=== PATIENT | female | born 1935 | race Caucasian/White ===

== ENCOUNTER 2018-06-04 13:52 | Inpatient (IN) | payer OTHER ==
--- NOTE | 2018-06-04 15:19 | PDOC ---
History of Present Illness - General Chief Complaint: Shortness of Breath Stated Complaint: SHORTNESS OF BREATH/UTI Time Seen by Provider: 06/04/18 13:54 History Source: Family (daughter, grand daughter) Exam Limitations: Dementia - History of Present Illness Initial Comments: 06/04/18 15:14 Pt is an 82yo f with PMH of dementia, htn, hld, afib, hypothyroid, IBS diarrhea type, anxiety BIBA because daughter noticed pt was acting confused and had a fever. Pt resides at [facility] living and per granddaughter, pt's daughter noticed pt seemed more confused, was breathing differently and wet the bed. Pt had a fever of 101.2. Pt says the only thing that is bothering her is her chronic diarrhea. Per grandaughter, pt will not complain of any pain or difficulties. She does not use oxygen at home. PCP: Yazmin PMH: see i Meds: simvastatin 20, ASA 81, amlodipine 5, levothyroxine 100, Remeron 15, Xanax Allergies: nkda Social: quit smoking 6 years ago Past History - Past Medical History Allergies/Adverse Reactions: Allergies Allergy/AdvReac Type Severity Reaction Status Date / Time No Known Allergies Allergy Unverified 04/06/14 15:35 Home Medications: Ambulatory Orders Alprazolam [Xanax] 0.5 mg PO QID 04/06/14 Amlodipine Besylate [Norvasc -] 5 mg PO DAILY 04/06/14 Levothyroxine [Synthroid -] 100 mcg PO DAILY 04/06/14 Simvastatin [Zocor -] 20 mg PO HS 04/06/14 Aspirin [ASA -] 81 mg PO DAILY 09/23/14 Mirtazapine [Remeron -] 15 mg PO DAILY 09/23/14 Cholecalciferol (Vitamin D3) [Vitamin D3] 1,000 unit PO DAILY 06/04/18 Dextrin [Easy Fiber] 2 tsp PO ASDIR PRN 06/04/18 Loperamide HCl [Imodium A-D] 2 mg PO PRN PRN 06/04/18 COPD: No Dementia: Yes HTN: Yes Hypercholesterolemia: Yes Psychiatric Problems: Yes (ANXIETY) Thyroid Disease: Yes - Suicide/Smoking/Psychosocial Hx Smoking History: Former smoker Have you smoked in the past 12 months: No Number of Cigarettes Smoked Daily: 0 If you are a former smoker, when did you quit?: 2014 Information on smoking cessation initiated: No 'Breaking Loose' booklet given: 09/23/14 Hx Alcohol Use: No Drug/Substance Use Hx: No Substance Use Type: None Review of Systems - Review of Systems Able to Perform ROS?: No (Pt doesn't have complaint) Constitutional: Yes: See HPI, Fever HEENTM: Yes: See HPI Respiratory: Yes: Wheezing. No: Cough Cardiac (ROS): Yes: See HPI ABD/GI: Yes: Diarrhea (chronic diarrhea). No: Blood Streaked Bowels, Vomiting : Yes: Incontinence Musculoskeletal: Yes: See HPI Integumentary: Yes: See HPI Neurological: Yes: See HPI Psychiatric: Yes: Anxiety *Physical Exam - Vital Signs Last Vital Signs Temp Pulse Resp BP Pulse Ox 101.3 F H 87 24 127/66 87 L 06/04/18 13:53 06/04/18 13:53 06/04/18 13:53 06/04/18 13:53 06/04/18 13:53 06/04/18 15:43 pulse ox 97 with 4L nc - Physical Exam Comments: 06/04/18 15:43 Pt sitting in bed with nc. General Appearance: Yes: Nourished, Appropriately Dressed. No: Apparent Distress HEENT: positive: EOMI, SOLO, Pharynx Normal, Hearing Grossly Normal. negative: Pale Conjunctivae, Scleral Icterus (R), Scleral Icterus (L), Pharyngeal Erythema , Tonsillar Exudate, Sinus Tenderness Neck: positive: Trachea midline, Supple. negative: Carotid bruit, Lymphadenopathy (R), Lymphadenopathy (L) Respiratory/Chest: positive: Decreased Breath Sounds (In R lung field), Crackles (in L lung base). negative: Respiratory Distress, Accessory Muscle Use Cardiovascular: positive: Regular Rhythm, Regular Rate, S1, S2. negative: Edema , JVD, Murmur Vascular Pulses: Carotid (R): 2+, Carotid (L): 2+, Dorsalis-Pedis (R): 2+, Doralis-Pedis (L): 2+ Gastrointestinal/Abdominal: positive: Normal Bowel Sounds, Soft. negative: Distended, Guarding, Rebound, Tenderness Musculoskeletal: negative: CVA Tenderness Extremity: positive: Normal Capillary Refill Integumentary: positive: Normal Color, Dry, Warm. negative: Erythema, Pale, Cold, Clammy, Diaphoresis, Rash, Swelling Neurologic: positive: grease man II-XII NML intact, Alert, Normal Mood/Affect, Motor Strength 5/5, Responsive. negative: Fully Oriented (oriented to self) Deep Tendon Reflexes: Knee (L): 2+, Knee (R): 2+ ED Treatment Course - LABORATORY CBC & Chemistry Diagram: 06/04/18 14:59 06/04/18 14:24 - ADDITIONAL ORDERS Additional order review: Laboratory Results 06/04/18 14:59 Creatine Kinase Cancelled Troponin I Cancelled - RADIOLOGY Radiology Studies Ordered: Category Date Time Status CHEST X-RAY PORTABLE* [RAD] Stat Radiology 06/04/18 14:24 Completed Medical Decision Making - Medical Decision Making 06/04/18 15:45 Pt is an 82yo f with PMH of dementia, htn, hld, afib, hypothyroid, IBS diarrhea type, anxiety BIBA because daughter noticed pt was acting confused and had a fever. Pt febrile at 101.3, low pulse ox on RA of 87. Normotensive, normocardic -incontinence with foul smelling urine per daughter -low pulse ox. Considering PNA, COPD exacerbation, UTI, Will do sepsis workup
[2018-06-04] MEDS ORDERED: SODIUM CHLORIDE 1,000 ML IV STA (15:33)
[2018-06-04] MEDS ORDERED: ACETAMINOPHEN 1000 MG/100 ML VIAL (NON FORMULARY) IVPB ONE (15:33)
[2018-06-04 15:38] LABS: INR 1.52 (0.82-1.09); PROTHROMBIN TIME (PATIENT) 16.9 SEC (10.2-13.0)
[2018-06-04] MEDS ORDERED: ACETAMINOPHEN INJECTION 100 ML IVPB ONE (15:40)
[2018-06-04 15:45] LABS: ALBUMIN 3.2 g/dl (3.5-5.0); ALK PHOS 96 U/L (32-92); ANION GAP 10 MMOL/L (8-16); BLOOD UREA NITROGEN 19 mg/dl (7-18); CALCIUM 8.5 mg/dl (8.4-10.2); CHLORIDE 100 mmol/L (98-107); CO2 25 mmol/L (22-28); CREATININE 0.8 mg/dl (0.6-1.3); GLUCOSE,RANDOM 122 mg/dl (74-106); MAGNESIUM 1.8 mg/dL (1.8-2.4); POTASSIUM 3.6 mmol/L (3.5-5.1); SGOT/AST 32 U/L (10-42); SGPT/ALT 35 U/L (10-40); SODIUM 135 mmol/L (136-145); TOT PROT 6.9 g/dl (6.4-8.3)
[2018-06-04 15:48] LABS: HEMATOCRIT 36.6 % (32.4-45.2); HEMOGLOBIN 12.2 GM/dl (10.7-15.3); MCH 29.1 pg (25.7-33.7); MCHC 33.3 g/dl (32.0-36.0); MEAN CELL VOLUME 87.3 fl (80-96); MEAN PLT VOLUME 8.2 fl (7.5-11.1); PLATELET COUNT 278 K/MM3 (134-434); RDW 13.8 % (11.6-15.6); WHITE BLOOD COUNT 19.2 K/mm3 (4.0-10.8)
[2018-06-04] MEDS ORDERED: ALBUTEROL SO4 2.5/IPRATROPIUM 0.5 INH SOL 3 ML VIAL.NEB. NEB ONE ×2 (16:13→16:32)
[2018-06-04] MEDS ORDERED: predniSONE 20 MG TABLET (UD) PO ONE (16:13)
--- NOTE | 2018-06-04 16:14 | PDOC ---
Attending Attestation - Resident Resident Name: Florinda Bal - ED Attending Attestation I have performed the following: I have examined & evaluated the patient, The case was reviewed & discussed with the resident, I agree w/resident's findings & plan - HPI HPI: 06/04/18 16:10 82-year-old female with history of dementia presents with fever, increased confusion from baseline, chest congestion and foul-smelling urine. - Physicial Exam PE: 06/04/18 16:10 On examination, the patient is awake, alert, somewhat confused, but following commands consistently. She is noted to have some mild expiratory wheezing, audible without a stethoscope. Chest has expiratory wheezes and rhonchi. Heart is regular rhythm. No murmur. Abdomen is soft and nontender. Extremities without cellulitis or edema. No cords or tenderness. - Medical Decision Making 06/04/18 16:13 Labs and chest x-ray reviewed by me. Although the chest x-ray was read as negative for pneumonia by the radiologist, there is loss of the left heart border with retrocardiac air bronchograms and increased infiltrate in the left lung compared to baseline. I feel there is clinical and radiographic evidence for a left lingular pneumonia. Urinalysis is pending. Patient will be treated with ceftriaxone and azithromycin for pneumonia. She will also be treated with DuoNeb's and prednisone for COPD exacerbation. She has a 50 year history of smoking, quit 3 years ago. Patient will be admitted for further management.
[2018-06-04] MEDS ORDERED: AZITHROMYCIN IVPB 500 MG in DEXTROSE 5%-WATER - 250 ML IVPB ONE (16:15)
[2018-06-04 16:17] LABS: PH,URINE 8.5 (4.5-8); URINE APPEARANCE Slightly; URINE BILIRUBIN 2+ (NEGATIVE); URINE COLOR Yellow; URINE GLUCOSE (UA) Trace (NEGATIVE); URINE KETONE 1+ (NEGATIVE); URINE NITRITE Negative (NEGATIVE); URINE PROTEIN Negative (NEGATIVE); URINE UROBILINOGEN 0.2 (0.2-1.0)
[2018-06-04 16:18] LABS: URINE LEUK ESTERASE 1+ (NEGATIVE)
[2018-06-04 16:30] LABS: VENOUS PC02 50.4 mmHg (38-52); VENOUS PH 7.34 (7.32-7.42); VENOUS PO2 92.1 mmHg (28-48)
[2018-06-04] MEDS ORDERED: predniSONE 20 MG TABLET (UD) ONE (16:32)
[2018-06-04] MEDS ORDERED: AZITHROMYCIN 500 MG VIAL IVPB ONE (16:32)
[2018-06-04] MEDS ORDERED: cefTRIAXone SODIUM 1 GM VIAL ONE (16:32)
[2018-06-04 16:47] LABS: AMORP PHOS MODERATE /hpf (NONE SEEN); URINE RBC 0-2 /hpf (0-3)
[2018-06-04 16:49] LABS: URINE BACTERIA FEW /hpf (NEGATIVE)
[2018-06-04 16:57] LABS: PLATELET ESTIMATE ADEQUATE
[2018-06-04] MEDS ORDERED: PATIENT'S OWN MEDICATION (NON-FORMULARY) (Alprazolam [Xanax] 0.5 MG) PO PRN (21:38)
--- NOTE | 2018-06-04 21:39 | HP ---
CHIEF COMPLAINT: altered mental status and fever PCP: Shawn Arce HISTORY OF PRESENT ILLNESS: This is an 82 year old female with a significant past medical history of dementia, HTN, HLD who presented to the ED with altered mental status since yesterday and fever today. Family reports pt normally performs her ADLs independently but today was unable to get up and get dressed today and was having difficulty walking yesterday. Pt was noted to be incontinent of urine today which is unusual for her. They also reports she has been showering less frequently over the past few months as well as complaining of leg pain. 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) PAST SURGICAL HISTORY: meningioma removal Social History: Smoking: prior 1PPD smoker Alcohol: pt/family deny Drugs: pt/family deny Family History: mother age 69 after multiple mini strokes father decased age 71[place] sister age 85 [place], CVA prior to that, smoker sister age 72, cervical CA, smoker brother age 59, [place], smoker brother age 72, lung CA, smoker Allergies escitalopram [From Lexapro] Allergy (Verified 06/04/18 19:42) UNKNOWN REACTION HOME MEDICATIONS: 3 Medication Instructions Recorded Alprazolam [Xanax] 0.5 mg PO QID 04/06/14 Amlodipine Besylate [Norvasc -] 5 mg PO DAILY 04/06/14 Levothyroxine [Synthroid -] 100 mcg PO DAILY 04/06/14 Simvastatin [Zocor -] 20 mg PO HS 04/06/14 Aspirin [ASA -] 81 mg PO DAILY 09/23/14 Mirtazapine [Remeron -] 15 mg PO DAILY 09/23/14 Cholecalciferol (Vitamin D3) 1,000 unit PO DAILY 06/04/18 [Vitamin D3] Dextrin [Easy Fiber] 2 tsp PO ASDIR PRN 06/04/18 Loperamide HCl [Imodium A-D] 2 mg PO PRN PRN 06/04/18 REVIEW OF SYSTEMS CONSTITUTIONAL: Present: fever Absent: chills, diaphoresis, generalized weakness, malaise, loss of appetite, weight change HEENT: Absent: rhinorrhea, nasal congestion, throat pain, throat swelling, difficulty swallowing, mouth swelling, ear pain, eye pain, visual changes CARDIOVASCULAR: Absent: chest pain, syncope, palpitations, irregular heart rate, lightheadedness , peripheral edema RESPIRATORY: Absent: cough, shortness of breath, dyspnea with exertion, orthopnea, wheezing, stridor, hemoptysis GASTROINTESTINAL: Absent: abdominal pain, abdominal distension, nausea, vomiting, diarrhea, constipation, melena, hematochezia GENITOURINARY: Absent: dysuria, frequency, urgency, hesitancy, hematuria, flank pain, genital pain MUSCULOSKELETAL: Absent: myalgia, arthralgia, joint swelling, back pain, neck pain SKIN: Absent: rash, itching, pallor HEMATOLOGIC/IMMUNOLOGIC: Absent: easy bleeding, easy bruising, lymphadenopathy, frequent infections ENDOCRINE: Absent: unexplained weight gain, unexplained weight loss, heat intolerance, cold intolerance NEUROLOGIC: Present: mental status changes Absent: headache, focal weakness or paresthesias, dizziness, unsteady gait, seizure, bladder or bowel incontinence PSYCHIATRIC: Absent: anxiety, depression, suicidal or homicidal ideation, hallucinations. PHYSICAL EXAMINATION Vital Signs - 24 hr 3 06/04/18 06/04/18 06/04/18 13:53 16:51 18:16 Temperature 101.3 F H 98.5 F 98.8 F Pulse Rate 87 Pulse Rate [ 86 87 Right] Respiratory 24 20 20 Rate Blood Pressure 127/66 Blood Pressure 113/65 117/71 [Right Arm] O2 Sat by Pulse 87 L 97 97 Oximetry (%) 3 06/04/18 06/04/18 18:21 20:12 Temperature 97.3 F L Pulse Rate 80 Pulse Rate [ Right] Respiratory 18 Rate Blood Pressure 117/65 Blood Pressure [Right Arm] O2 Sat by Pulse 92 L 98 Oximetry (%) GENERAL: Awake, alert, fully oriented to person, not time or place, in no acute distress. HEAD: Normal with no signs of trauma. EYES: Pupils equal, round and reactive to light, extraocular movements intact, sclera anicteric, conjunctiva clear. No lid lag. EARS, NOSE, THROAT: Ears normal, nares patent, oropharynx clear without exudates. Moist mucous membranes. NECK: Normal range of motion, supple without lymphadenopathy, JVD, or masses. LUNGS: Breath sounds diminished. No wheezes, and no crackles. No accessory muscle use. noted to puff cheeks out with expiration HEART: Regular rate and rhythm, normal S1 and S2 without murmur, rub or gallop. ABDOMEN: Soft, nontender, not distended, normoactive bowel sounds, no guarding, no rebound, no masses. No hepatomegaly or splenomegaly. MUSCULOSKELETAL: Normal range of motion at all joints. No bony deformities or tenderness. No CVA tenderness. UPPER EXTREMITIES: 2+ pulses, warm, well-perfused. No cyanosis. No clubbing. No peripheral edema. LOWER EXTREMITIES: 2+ pulses, warm, well-perfused. No calf tenderness. No peripheral edema. NEUROLOGICAL: Cranial nerves II-XII intact. Normal speech. PSYCHIATRIC: Cooperative. Good eye contact. Appropriate mood and affect. SKIN: Warm, dry, normal turgor, no rashes or lesions noted, normal capillary refill. Laboratory Results - last 24 hr 3 06/04/18 06/04/18 06/04/18 14:24 14:55 14:59 15:14 WBC 19.2 H RBC 4.20 Hgb 12.2 Hct 36.6 D MCV 87.3 MCH 29.1 MCHC 33.3 RDW 13.8 Plt Count 278 MPV 8.2 Absolute Neuts (auto) 16.2 Neutrophils % No Result Required. Neutrophils % (Manual) 82.0 Band Neutrophils % 4.0 Lymphocytes % No Result Required. Lymphocytes % (Manual) 4.0 L Monocytes % (Manual) 10 Platelet Estimate Adequate PT with INR 16.9 H INR 1.52 H VBG pH 7.34 POC VBG pCO2 50.4 POC VBG pO2 92.1 H Mixed VBG HCO3 26.2 H Sodium 135 L Potassium 3.6 Chloride 100 Carbon Dioxide 25 Anion Gap 10 BUN 19 H Creatinine 0.8 Creat Clearance w eGFR > 60 Random Glucose 122 H Lactic Acid 0.8 Calcium 8.5 Phosphorus 3.0 Magnesium 1.8 Total Bilirubin 1.0 AST 32 D ALT 35 D Alkaline Phosphatase 96 H Creatine Kinase 345 H Creatine Kinase Index 1.3 CK-MB (CK-2) 4.8 H Troponin I 0.03 Total Protein 6.9 Albumin 3.2 L Urine Color Urine Appearance Urine pH Ur Specific [place] Urine Protein Urine Glucose (UA) Urine Ketones Urine Blood Urine Nitrite Urine Bilirubin Urine Urobilinogen Ur Leukocyte Esterase Urine RBC Urine WBC Ur Epithelial Cells Amorphous Phosphates Urine Bacteria Urine Test Results 3 Urine Color Yellow 06/04/18 15:25 Urine Appearance Slightly 06/04/18 15:25 Urine pH 8.5 (4.5-8) H 06/04/18 15:25 Ur Specific [place] 1.020 (1.005-1.025) 06/04/18 15:25 Urine Protein Negative (NEGATIVE) 06/04/18 15:25 Urine Glucose (UA) Trace (NEGATIVE) 06/04/18 15:25 Urine Ketones 1+ (NEGATIVE) H 06/04/18 15:25 Urine Blood Negative (NEGATIVE) 06/04/18 15:25 Urine Nitrite Negative (NEGATIVE) 06/04/18 15:25 Urine Bilirubin 2+ (NEGATIVE) H 06/04/18 15:25 Ur Leukocyte Esterase 1+ (NEGATIVE) H 06/04/18 15:25 Urine RBC 0-2 /hpf (0-3) 06/04/18 15:25 Urine WBC 5-10 (0-5) 06/04/18 15:25 Ur Epithelial Cells 3-5 /HPF 06/04/18 15:25 Amorphous Phosphates Moderate Urine Bacteria Few /hpf (NEGATIVE) 06/04/18 15:25 ECG Normal sinus rhythm vent rate 82, QTC [address]/T wave deviations Radiology Reports Chest xray A single AP view the chest reveals a prominent heart, sclerotic knob, degenerative spine and shoulder changes with prominent fantasma. The lungs are clear. The angles are sharp. An acute chest process is not seen. Since 2013, the central markings have increased slightly. There is more plaque in the aortic knob. Correlation recommended Reported By: Lester Garcia MD 06/04/[address] THIS IS A PRELIMINARY REPORT FROM [facility] Findings: *Mild bilateral patchy ill-defined infiltrates, most severe in the left upper lobe laterally. Scattered atelectasis and fibrotic changes in the remainder of the lungs with moderate centrilobular emphysema. Tiny left pleural effusion. No pneumothorax. Shotty nonspecific mediastinal lymph nodes, likely reactive. Tiny pericardial effusion. Small hiatal hernia. Mild hepatic steatosis. Right renal cyst. 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 Visit type - Emergency Visit Emergency Visit: Yes ED Registration Date: 06/04/18 Care time: The patient presented to the Emergency Department on the above date and was hospitalized for further evaluation of their emergent condition. - New Patient This patient is new to me today: Yes Date on this admission: 06/04/18 - Critical Care Critical Care patient: No Hospitalist Screening - Colonoscopy Questionnaire Colonoscopy Questionnaire: Colonoscopy Questionnaire - Patient: 50 - 75 years old and never had a screening colonoscopy: No History of colon or rectal polyps, or CA: No History of IBD, Crohn's disease or UC: No History of abdominal radiation therapy as a child: No - Relative: 1 with colon or rectal CA, or polyps at age 60 or younger: No Colon or rectal CA diagnosed at age 45 or younger: No Multiple relatives with colon or rectal CA: No - Outcome: Screening Result: Negative Screen
[2018-06-04] MEDS: ATORVASTATIN CA 10 MG TABLET (FP) PO SCH (21:55)
[2018-06-04] MEDS: ALPRAZolam 0.25 MG TABLET PO PRN (21:55)
[2018-06-04] MEDS: ALBUTEROL SO4 2.5/IPRATROPIUM 0.5 INH SOL 3 ML VIAL.NEB. NEB SCH (21:55)
[2018-06-04] MEDS: MIRTAZAPINE 15 MG TABLET (FP) PO SCH (21:55)
[2018-06-04] MEDS ORDERED: PATIENT'S OWN MEDICATION (NON-FORMULARY) (Simvastatin 20 MG) PO SCH (22:00)
[2018-06-05] MEDS: LEVOTHYROXINE NA 100 MCG TABLET (FP) PO SCH (06:21)
[2018-06-05] MEDS: ALBUTEROL SO4 2.5/IPRATROPIUM 0.5 INH SOL 3 ML VIAL.NEB. NEB SCH ×4 (07:57→21:15)
[2018-06-05 08:04] LABS: BASO % 0.1 % (0-2.0); EOS % 0.1 % (0-4.5); HEMOGLOBIN 11.9 GM/dl (10.7-15.3); LYMPH % 5.1 % (8-40); MCH 29.2 pg (25.7-33.7); MCHC 33.1 g/dl (32.0-36.0); MEAN CELL VOLUME 88.2 fl (80-96); MEAN PLT VOLUME 8.2 fl (7.5-11.1); MONO % 6.2 % (3.8-10.2); NEUT % 88.5 % (42.8-82.8); PLATELET COUNT 238 K/MM3 (134-434); RBC 4.08 M/mm3 (3.60-5.2); RDW 13.7 % (11.6-15.6); WHITE BLOOD COUNT 15.5 K/mm3 (4.0-10.8)
[2018-06-05 08:21] LABS: ANION GAP 6 MMOL/L (8-16); BLOOD UREA NITROGEN 16 mg/dl (7-18); CALCIUM 8.4 mg/dl (8.4-10.2); CHLORIDE 107 mmol/L (98-107); CO2 27 mmol/L (22-28); CREATININE 0.6 mg/dl (0.6-1.3); GLUCOSE,RANDOM 127 mg/dl (74-106); POTASSIUM 4.1 mmol/L (3.5-5.1); SODIUM 140 mmol/L (136-145)
[2018-06-05] MEDS: ASPIRIN 81 MG CHEWABLE TABLETS PO SCH (09:56)
[2018-06-05] MEDS: CEFTRIAXONE 1 GM/50 ML BAG IVPB SCH (09:56)
[2018-06-05] MEDS: amLODIPine BESYLATE 5 MG TABLET (FP) PO SCH ×2 (09:56→10:53)
[2018-06-05] MEDS: CHOLECALCIFEROL (VITAMIN D3) 1,000 UNIT TABLET (FP) PO SCH (09:56)
[2018-06-05] MEDS: ENOXAPARIN NA (PORCINE) 40 MG/0.4 ML DISP.SYRIN SQ SCH (09:57)
[2018-06-05] MEDS ORDERED: MIRTAZAPINE 15 MG TABLET (FP) PO SCH (10:00)
[2018-06-05] MEDS ORDERED: AZITHROMYCIN IVPB 500 MG in DEXTROSE 5%-WATER - 250 ML IVPB SCH (10:00)
[2018-06-05] MEDS: AZITHROMYCIN IVPB 250 ML IVPB SCH (10:02)
--- NOTE | 2018-06-05 10:27 | PN ---
Physical Exam: SUBJECTIVE: Patient seen and examined, Patient lethargic opens eyes to name, responds to simple questions, denies any chest pain or shortness of breath family [id number] Zenaida Khan (Daughter) Von Villalta (son) at bedside. OBJECTIVE: Patient is a 82-year-old female with a past medical history of dementia, Anxiety/depression and hypertension. Patient was admitted from the emergency department for sepsis and acute pneumonia Vital Signs Period Temp Pulse Resp BP Sys/Braga Pulse Ox Last 24 Hr 97.3 F-101.3 F 74-87 16-24 93-127/37-71 87-98 GENERAL: The patient is Lethargic opens eyes to name, and fully oriented, in no acute distress. HEAD: Normal with no signs of trauma. EYES: PERRL, extraocular movements intact, sclera anicteric, conjunctiva clear. No ptosis. ENT: Ears normal, nares patent, oropharynx clear without exudates, moist mucous membranes. NECK: Trachea midline, full range of motion, supple. LUNGS: Breath sounds equal, left lung-->moderately Diminished with diffuse crackles, Right lung--> diminished with wheezing at apex respiratory rate 24 + accessory muscle use. HEART: Regular rate and rhythm, S1, S2 without murmur, rub or gallop. ABDOMEN: Soft, nontender, nondistended, normoactive bowel sounds, no guarding, no rebound, no hepatosplenomegaly, no masses. EXTREMITIES: 2+ pulses, warm, well-perfused, no edema. NEUROLOGICAL: Cranial nerves II through XII grossly intact. Normal speech, gait not observed. PSYCH: Normal mood, normal affect. SKIN: Warm, dry, normal turgor, no rashes or lesions noted Laboratory Results - last 24 hr 06/04/18 06/04/18 06/04/18 14:24 14:55 14:59 WBC 19.2 H RBC 4.20 Hgb 12.2 Hct 36.6 D MCV 87.3 MCH 29.1 MCHC 33.3 RDW 13.8 Plt Count 278 MPV 8.2 Absolute Neuts (auto) 16.2 Neutrophils % No Result Required. Neutrophils % (Manual) 82.0 Band Neutrophils % 4.0 Lymphocytes % No Result Required. Lymphocytes % (Manual) 4.0 L Monocytes % Monocytes % (Manual) 10 Eosinophils % Basophils % Platelet Estimate Adequate PT with INR 16.9 H INR 1.52 H VBG pH POC VBG pCO2 POC VBG pO2 Mixed VBG HCO3 Sodium 135 L Potassium 3.6 Chloride 100 Carbon Dioxide 25 Anion Gap 10 BUN 19 H Creatinine 0.8 Creat Clearance w eGFR > 60 Random Glucose 122 H Lactic Acid Calcium 8.5 Phosphorus 3.0 Magnesium 1.8 Total Bilirubin 1.0 AST 32 D ALT 35 D Alkaline Phosphatase 96 H Creatine Kinase Creatine Kinase Index CK-MB (CK-2) Troponin I Total Protein 6.9 Albumin 3.2 L Urine Color Urine Appearance Urine pH Ur Specific [place] Urine Protein Urine Glucose (UA) Urine Ketones Urine Blood Urine Nitrite Urine Bilirubin Urine Urobilinogen Ur Leukocyte Esterase Urine RBC Urine WBC Ur Epithelial Cells Amorphous Phosphates Urine Bacteria 06/04/18 06/04/18 06/04/18 14:59 14:59 14:59 WBC RBC Hgb Hct MCV MCH MCHC RDW Plt Count MPV Absolute Neuts (auto) Neutrophils % Neutrophils % (Manual) Band Neutrophils % Lymphocytes % Lymphocytes % (Manual) Monocytes % Monocytes % (Manual) Eosinophils % Basophils % Platelet Estimate PT with INR INR VBG pH 7.34 POC VBG pCO2 50.4 POC VBG pO2 92.1 H Mixed VBG HCO3 26.2 H Sodium Potassium Chloride Carbon Dioxide Anion Gap BUN Creatinine Creat Clearance w eGFR Random Glucose Lactic Acid 0.8 Calcium Phosphorus Magnesium Total Bilirubin AST ALT Alkaline Phosphatase Creatine Kinase Cancelled Creatine Kinase Index CK-MB (CK-2) Troponin I Cancelled Total Protein Albumin Urine Color Urine Appearance Urine pH Ur Specific [place] Urine Protein Urine Glucose (UA) Urine Ketones Urine Blood Urine Nitrite Urine Bilirubin Urine Urobilinogen Ur Leukocyte Esterase Urine RBC Urine WBC Ur Epithelial Cells Amorphous Phosphates Urine Bacteria 06/04/18 06/04/18 06/04/18 15:14 15:14 15:25 WBC RBC Hgb Hct MCV MCH MCHC RDW Plt Count MPV Absolute Neuts (auto) Neutrophils % Neutrophils % (Manual) Band Neutrophils % Lymphocytes % Lymphocytes % (Manual) Monocytes % Monocytes % (Manual) Eosinophils % Basophils % Platelet Estimate PT with INR INR VBG pH POC VBG pCO2 POC VBG pO2 Mixed VBG HCO3 Sodium Potassium Chloride Carbon Dioxide Anion Gap BUN Creatinine Creat Clearance w eGFR Random Glucose Lactic Acid Calcium Phosphorus Magnesium Total Bilirubin AST ALT Alkaline Phosphatase Creatine Kinase 345 H Creatine Kinase Index 1.3 CK-MB (CK-2) 4.8 H Troponin I 0.03 Total Protein Albumin Urine Color Yellow Urine Appearance Slightly Urine pH 8.5 H Ur Specific [place] 1.020 Urine Protein Negative Urine Glucose (UA) Trace Urine Ketones 1+ H Urine Blood Negative Urine Nitrite Negative Urine Bilirubin 2+ H Urine Urobilinogen 0.2 Ur Leukocyte Esterase 1+ H Urine RBC 0-2 Urine WBC 5-10 Ur Epithelial Cells 3-5 Amorphous Phosphates Moderate Urine Bacteria Few 06/05/18 06/05/18 07:30 07:30 WBC 15.5 H RBC 4.08 Hgb 11.9 Hct 36.0 MCV 88.2 MCH 29.2 MCHC 33.1 RDW 13.7 Plt Count 238 MPV 8.2 Absolute Neuts (auto) 13.7 Neutrophils % 88.5 H Neutrophils % (Manual) Band Neutrophils % Lymphocytes % 5.1 L Lymphocytes % (Manual) Monocytes % 6.2 Monocytes % (Manual) Eosinophils % 0.1 Basophils % 0.1 Platelet Estimate PT with INR INR VBG pH POC VBG pCO2 POC VBG pO2 Mixed VBG HCO3 Sodium 140 Potassium 4.1 Chloride 107 Carbon Dioxide 27 Anion Gap 6 L BUN 16 Creatinine 0.6 Creat Clearance w eGFR > 60 Random Glucose 127 H Lactic Acid Calcium 8.4 Phosphorus Magnesium Total Bilirubin AST ALT Alkaline Phosphatase Creatine Kinase Creatine Kinase Index CK-MB (CK-2) Troponin I Total Protein Albumin Urine Color Urine Appearance Urine pH Ur Specific [place] Urine Protein Urine Glucose (UA) Urine Ketones Urine Blood Urine Nitrite Urine Bilirubin Urine Urobilinogen Ur Leukocyte Esterase Urine RBC Urine WBC Ur Epithelial Cells Amorphous Phosphates Urine Bacteria Active Medications Generic Name Dose Route Start Last Admin Trade Name Sergioq PRN Reason Stop Dose Admin Albuterol/Ipratropium 1 amp 06/04/18 20:00 06/05/18 07:57 Duoneb - NEB 1 amp RQID AZAEL Administration Alprazolam 0.5 mg 06/04/18 21:40 06/04/18 21:55 Xanax - PO 0.5 mg Q6H PRN Administration ANXIETY Amlodipine Besylate 5 mg 06/05/18 10:00 06/05/18 09:56 Norvasc - PO 5 mg DAILY AZAEL Administration Aspirin 81 mg 06/05/18 10:00 06/05/18 09:56 Asa - PO 81 mg DAILY AZAEL Administration Atorvastatin Calcium 10 mg 06/04/18 22:00 09/09/18 21:55 Lipitor - PO 10 mg HS AZAEL Administration Cholecalciferol 1,000 unit 06/05/18 10:00 06/05/18 09:56 Vitamin D3 - PO 1,000 unit DAILY AZAEL Administration Enoxaparin Sodium 40 mg 06/05/18 10:00 06/05/18 09:57 Lovenox - SQ 40 mg DAILY AZAEL Administration Ceftriaxone Sodium 1 gm in 50 mls @ 100 mls/hr 06/05/18 10:00 06/05/18 09:56 Rocephin 1gm Ivpb (Pre-Docked) IVPB 100 mls/hr DAILY AZAEL Administration Protocol Azithromycin 250 mls @ 250 mls/hr 06/05/18 10:00 06/05/18 10:02 Zithromax 500mg Ivpb (Pre-Docked) IVPB 250 mls/hr DAILY [facility]AEL Administration Levothyroxine Sodium 100 mcg 06/05/18 07:00 06/05/18 06:21 Synthroid - PO 100 mcg DAILY@0700 [facility]AEL Administration Mirtazapine 15 mg 06/04/18 22:00 06/04/18 21:55 Remeron - PO 15 mg HS AZAEL Administration IMAGING ct of chest: Consistent with acute pneumonia of left upper lobe, small pleural effusion ASSESSMENT/PLAN: 1) ID sepsis secondary to CAP - wbc trending downward, pt is afebrile, continue zithromax and rocephin - repeat cxr today, unchanged - urine antigens ordered, pending blood/urine culture 2) pulm CAP -continue Zithromax and rocephin copd - Wheezing noted on exam son and daughter report patient is a former smoker, quit 3 years ago - Start Solu-Medrol taper as appropriate - appreciate pulmonary input 3) cardiovascular HTN - hold Norvasc secondary to labile BP HLD - cont home meds 4) endo hypothyroid - cont home synthroid, pending TSH 5) psyc anxiety - 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 Visit type - Emergency Visit Emergency Visit: Yes ED Registration Date: 06/04/18 Care time: The patient presented to the Emergency Department on the above date and was hospitalized for further evaluation of their emergent condition. - New Patient This patient is new to me today: Yes Date on this admission: 06/05/18 - Critical Care Critical Care patient: No - Discharge Referral Referred to [facility] Med P.C.: No
[2018-06-05] MEDS ORDERED: methylPREDNISolone NA SUCC 40 MG/1 ML VIAL IVPUSH SCH (11:00)
[2018-06-05] MEDS ORDERED: SODIUM CHLORIDE 1,000 ML IV SCH (11:00)
--- NOTE | 2018-06-05 11:20 | EKG ---
Test Reason : Blood Pressure : / mmHG Vent. Rate : 082 BPM Atrial Rate : 082 BPM P-R Int : 168 ms QRS Dur : 076 ms QT Int : 366 ms P-R-T Axes : 086 053 046 degrees QTc Int : 427 ms NORMAL SINUS RHYTHM LOW VOLTAGE QRS SEPTAL INFARCT , AGE UNDETERMINED ABNORMAL ECG NO PREVIOUS ECGS AVAILABLE Confirmed by ADELITA REYNOLDS, JULIO ([id number]) on 06/05/2018 11:20:18 AM Referred By: Veronica Ng Confirmed By:JULIO UREÑA MD
[2018-06-05] MEDS: LACTOBACILLUS ACIDOPHILUS 1 TABLET PO SCH (12:00)
[2018-06-05] MEDS: FAMOTIDINE 20 MG TABLET PO SCH ×2 (12:00→21:17)
--- NOTE | 2018-06-05 14:41 | CON.PULM ---
Consult Consult Specialty:: PULMONARY Referred by:: MAGUI Reason for Consultation:: PNEUMONIA - History of Present Illness Chief Complaint: COUGH/SPUTUM/FEVER History of Present Illness: Pt is an 82yo f with PMH of dementia, htn, hld, afib, hypothyroid, IBS diarrhea type, anxiety BIBA because daughter noticed pt was acting confused and had a fever. Pt resides at [facility] and per granddaughter, pt's daughter noticed pt seemed more confused, was breathing differently and wet the bed. Pt had a fever of 101.2. Pt says the only thing that is bothering her is her chronic diarrhea. Per grandaughter, pt will not complain of any pain or difficulties. She does not use oxygen at home. - History Source History Provided By: Family Member, Medical Record Limitations to Obtaining History: Dementia - Past Medical History STORE HOST: Yes: Dementia, Other (severe anxiety disorder.) Cardio/Vascular: Yes: HTN, Hyperlipdemia Pulmonary: Yes: COPD Gastrointestinal: Yes: Irritable Bowel Disease Renal/: Yes: Other (recent urinary incontinence) Reproductive: Yes: Postmenopausal ...: No Heme/Onc: Yes: Anemia Psych: Yes: Anxiety, Depression, Panic Musculoskeletal: Yes: Chronic low back pain, Osteoarthritis Endocrine: Yes: Hypothyroidism - Alcohol/Substance Use Hx Alcohol Use: No - Smoking History Smoking history: Former smoker Have you smoked in the past 12 months: No Aproximately how many cigarettes per day: 0 If you are a former smoker, when did you quit?: 2014 - Social History Usual Living Arrangement: Assisted Living Place of : [facility] History of Recent Travel: No Home Medications - Allergies Allergies/Adverse Reactions: Allergies Allergy/AdvReac Type Severity Reaction Status Date / Time escitalopram [From Lexapro] Allergy Verified 06/04/18 19:42 - Home Medications Home Medications: Ambulatory Orders Alprazolam [Xanax] 0.5 mg PO QID 04/06/14 Amlodipine Besylate [Norvasc -] 5 mg PO DAILY 04/06/14 Levothyroxine [Synthroid -] 100 mcg PO DAILY 04/06/14 Simvastatin [Zocor -] 20 mg PO HS 04/06/14 Aspirin [ASA -] 81 mg PO DAILY 09/23/14 Mirtazapine [Remeron -] 15 mg PO DAILY 09/23/14 Cholecalciferol (Vitamin D3) [Vitamin D3] 1,000 unit PO DAILY 06/04/18 Dextrin [Easy Fiber] 2 tsp PO ASDIR PRN 06/04/18 Loperamide HCl [Imodium A-D] 2 mg PO PRN PRN 06/04/18 Family Disease History - Family Disease History Family History: Unremarkable Review of Systems Unable to obtain ROS, reason: UNABLE Physical Exam Vital Sings: Vital Signs Temperature 97.5 F L 06/05/18 06:00 Pulse Rate 74 06/05/18 09:49 Respiratory Rate 16 06/05/18 09:49 Blood Pressure 122/51 06/05/18 09:49 O2 Sat by Pulse Oximetry (%) 97 06/05/18 09:49 Constitutional: Yes: Anxious Eyes: Yes: EOM Intact HENT: Yes: Normocephalic Neck: Yes: Trachea Midline Cardiovascular: Yes: Regular Rate and Rhythm Respiratory: Yes: Diminished Gastrointestinal: Yes: Normal Bowel Sounds, Soft, Abdomen, Obese Edema: No Integumentary: Yes: WNL Neurological: Yes: Pre-Existing Deficit Labs: CBC, BMP 06/05/18 07:30 06/05/18 07:30 REST REVIEWED Imaging - Results Chest X-ray: Report Reviewed, Image Reviewed Cat Scan: Report Reviewed, Image Reviewed Problem List - Problems (1) Pneumonia Code(s): J18.9 - PNEUMONIA, UNSPECIFIED ORGANISM (2) Dementia Code(s): F03.90 - UNSPECIFIED DEMENTIA WITHOUT BEHAVIORAL DISTURBANCE (3) Atrial fibrillation Code(s): I48.91 - UNSPECIFIED ATRIAL FIBRILLATION (4) COPD (chronic obstructive pulmonary disease) Code(s): J44.9 - CHRONIC OBSTRUCTIVE PULMONARY DISEASE, UNSPECIFIED Assessment/Plan FACILITY ACQUIRED PNEUMONIA COPD/FORMER SMOKER DEMENTIA HTN/AF/HLD/ASHD IBS CHECK CULTURES PENDING O2 TO KEEP SAT > THAN 90% ANTIBIOTICS/SHORT COURSE STEROIDS BRONCHODILATORS DVT/GI PROPHYLAXSIS CONSIDER ID CARMELA MORENO MD
[2018-06-05] MEDS: ALPRAZolam 0.25 MG TABLET PO PRN ×2 (15:18→21:16)
--- NOTE | 2018-06-05 15:27 | ECHO ---
Name: LINDA OSBORNE Exam:Adult Echocardiogram Study Date: 06/05/2018 02:08 PM Age: 82 yrs Reason For Study: DYSPNEA UPON EXERTION Height: 64 in Weight: 176 lb BSA: 1.9 m2 MMode/2D Measurements & Calculations IVSd: 1.1 cm Ao root diam: 3.0 cm LVIDd: 4.0 cm LA dimension: 2.5 cm LVIDs: 2.2 cm LVPWd: 0.93 cm EDV(Teich): 68.7 ml ESV(Teich): 15.9 ml Doppler Measurements & Calculations MV E max jadon: 101.2 cm/sec MV A max jadon: 120.0 cm/sec MV dec slope: 428.2 cm/sec2 MV E/A: 0.84 TR max jadon: 264.3 cm/sec TR max P.9 mmHg Procedure A complete two-dimensional transthoracic echocardiogram was performed (2D, M-mode, Doppler and color flow Doppler). Left Ventricle The left ventricle is normal in size. Left ventricular systolic function is normal. Ejection Fraction = 60- 65%. No regional wall motion abnormalities noted. Right Ventricle The right ventricle is normal size. The right ventricular systolic function is normal. Atria The left atrial size is normal. Right atrial size is normal. Mitral Valve There is mild mitral annular calcification. There is trace to mild mitral regurgitation. Tricuspid Valve The tricuspid valve is normal in structure and function. There is mild tricuspid regurgitation. Pulmo nary artery systolic pressure is at least 31 mmHg assuming RA pressure of 3 mmHg. Aortic Valve There is mild aortic sclerosis.;. Mild aortic regurgitation. Pulmonic Valve The pulmonic valve is not well visualized. Great Vessels The aortic root is normal size. Pericardium/Pleura There is no pericardial effusion. Interpretation Summary The left ventricle is normal in size. Left ventricular systolic function is normal. No regional wall motion abnormalities noted. Ejection Fraction = 60-65%. The right ventricular systolic function is normal. The left atrial size is normal. Right atrial size is normal. There is mild mitral annular calcification. There is trace to mild mitral regurgitation. There is mild tricuspid regurgitation. Pulmonary artery systolic pressure is at least 31 mmHg assuming RA pressure of 3 mmHg There is mild aortic sclerosis.; Mild aortic regurgitation. There is no pericardial effusion. Previous study is not available for comparison Lawrence Correia MD 06/05/2018 03:27 PM
[2018-06-05] MEDS: methylPREDNISolone NA SUCC 40 MG/1 ML VIAL IVPUSH SCH (17:16)
[2018-06-05] MEDS: ATORVASTATIN CA 10 MG TABLET (FP) PO SCH (21:17)
[2018-06-05] MEDS: MIRTAZAPINE 15 MG TABLET (FP) PO SCH (21:18)
[2018-06-06] MEDS: methylPREDNISolone NA SUCC 40 MG/1 ML VIAL IVPUSH SCH ×3 (01:30→17:46)
[2018-06-06] MEDS: LEVOTHYROXINE NA 100 MCG TABLET (FP) PO SCH (06:22)
[2018-06-06 08:16] LABS: BASO % 0.1 % (0-2.0); EOS % 0.1 % (0-4.5); HEMOGLOBIN 11.2 GM/dl (10.7-15.3); LYMPH % 7.6 % (8-40); MCH 28.3 pg (25.7-33.7); MEAN CELL VOLUME 88.6 fl (80-96); MEAN PLT VOLUME 8.2 fl (7.5-11.1); MONO % 6.1 % (3.8-10.2); NEUT % 86.1 % (42.8-82.8); PLATELET COUNT 311 K/MM3 (134-434); RBC 3.95 M/mm3 (3.60-5.2); RDW 13.9 % (11.6-15.6); WHITE BLOOD COUNT 16.4 K/mm3 (4.0-10.8)
[2018-06-06 08:37] LABS: ANION GAP 8 MMOL/L (8-16); BLOOD UREA NITROGEN 17 mg/dl (7-18); CALCIUM 8.7 mg/dl (8.4-10.2); CHLORIDE 106 mmol/L (98-107); CO2 27 mmol/L (22-28); CREATININE 0.8 mg/dl (0.6-1.3); GLUCOSE,RANDOM 96 mg/dl (74-106); MAGNESIUM 1.9 mg/dL (1.8-2.4); PHOSPHOROUS 2.3 mg/dl (2.5-4.6); POTASSIUM 3.9 mmol/L (3.5-5.1); SODIUM 141 mmol/L (136-145)
[2018-06-06] MEDS: ASPIRIN 81 MG CHEWABLE TABLETS PO SCH (09:21)
[2018-06-06] MEDS: ALBUTEROL SO4 2.5/IPRATROPIUM 0.5 INH SOL 3 ML VIAL.NEB. NEB SCH (09:21)
[2018-06-06] MEDS: LACTOBACILLUS ACIDOPHILUS 1 TABLET PO SCH (09:22)
[2018-06-06] MEDS: FAMOTIDINE 20 MG TABLET PO SCH ×2 (09:22→21:26)
[2018-06-06] MEDS: amLODIPine BESYLATE 5 MG TABLET (FP) PO SCH (09:22)
[2018-06-06] MEDS: ENOXAPARIN NA (PORCINE) 40 MG/0.4 ML DISP.SYRIN SQ SCH (09:22)
[2018-06-06] MEDS: ALPRAZolam 0.25 MG TABLET PO PRN ×2 (09:23→16:28)
[2018-06-06] MEDS: CHOLECALCIFEROL (VITAMIN D3) 1,000 UNIT TABLET (FP) PO SCH (09:25)
[2018-06-06] MEDS: AZITHROMYCIN IVPB 250 ML IVPB SCH (09:25)
[2018-06-06] MEDS: CEFTRIAXONE 1 GM/50 ML BAG IVPB SCH (09:27)
[2018-06-06] MEDS ORDERED: ALBUTEROL SO4 2.5/IPRATROPIUM 0.5 INH SOL 3 ML VIAL.NEB. NEB PRN (09:55)
--- NOTE | 2018-06-06 10:12 | PN ---
Progress Note, Physician History of Present Illness: PULMONARY AWAKE,CONFUSED,OOB-CHAIR,-RESP DISTRESS - Current Medication List Current Medications: Active Medications Albuterol/Ipratropium (Duoneb -) 1 amp NEB RQID PRN PRN Reason: WHEEZING Alprazolam (Xanax -) 0.5 mg PO Q6H PRN PRN Reason: ANXIETY Last Admin: 06/06/18 09:23 Dose: 0.5 mg Amlodipine Besylate (Norvasc -) 5 mg PO DAILY [facility] Last Admin: 06/06/18 09:22 Dose: 5 mg Aspirin (Asa -) 81 mg PO DAILY [facility] Last Admin: 06/06/18 09:21 Dose: 81 mg Atorvastatin Calcium (Lipitor -) 10 mg PO HS [facility] Last Admin: 06/05/18 21:17 Dose: 10 mg Cholecalciferol (Vitamin D3 -) 1,000 unit PO DAILY [facility] Last Admin: 06/06/18 09:25 Dose: 1,000 unit Enoxaparin Sodium (Lovenox -) 40 mg SQ DAILY [facility] Last Admin: 06/06/18 09:22 Dose: 40 mg Famotidine (Pepcid -) 20 mg PO BID [facility] Last Admin: 06/06/18 09:22 Dose: 20 mg Ceftriaxone Sodium (Rocephin 1gm Ivpb (Pre-Docked)) 1 gm in 50 mls @ 100 mls/ hr IVPB DAILY [facility]; Protocol Last Admin: 06/06/18 09:27 Dose: 100 mls/hr Azithromycin (Zithromax 500mg Ivpb (Pre-Docked)) 250 mls @ 250 mls/hr IVPB DAILY [facility]AEL Last Admin: 06/06/18 09:25 Dose: 250 mls/hr Sodium Chloride (Normal Saline -) 1,000 mls @ 42 mls/hr IV ASDIR [facility] Last Admin: 06/05/18 11:35 Dose: 42 mls/hr Lactobacillus Acidophilus (Bacid -) 1 tab PO DAILY [facility]AEL Last Admin: 06/06/18 09:22 Dose: 1 tab Levothyroxine Sodium (Synthroid -) 100 mcg PO DAILY@0700 AZAEL Last Admin: 06/06/18 06:22 Dose: 100 mcg Methylprednisolone Sodium Succinate (Solu-Medrol -) 20 mg IVPUSH Q8H-IV [facility]AEL Last Admin: 06/06/18 09:18 Dose: 20 mg Mirtazapine (Remeron -) 15 mg PO HS [facility] Last Admin: 06/05/18 21:18 Dose: 15 mg - Objective Vital Signs: Vital Signs Temperature 97.7 F 06/06/18 06:00 Pulse Rate 78 06/06/18 06:00 Respiratory Rate 20 06/06/18 06:00 Blood Pressure 132/52 06/06/18 06:00 O2 Sat by Pulse Oximetry (%) 93 L 06/06/18 09:00 Constitutional: Yes: Well Nourished, Other (CONFUSED) Eyes: Yes: WNL HENT: Yes: WNL Neck: Yes: WNL Cardiovascular: Yes: Pulse Irregular, S1, S2 Respiratory: Yes: Rales (CRACKLES LEFT 1/3 UP) Gastrointestinal: Yes: Normal Bowel Sounds, Soft Extremities: Yes: WNL Edema: No Labs: CBC, BMP 06/06/18 07:30 06/06/18 07:30 INR, PTT INR 1.52 (0.82-1.09) H 06/04/18 14:55 Assessment/Plan Problem List - Problems (1) Pneumonia Code(s): J18.9 - PNEUMONIA, UNSPECIFIED ORGANISM (2) Dementia Code(s): F03.90 - UNSPECIFIED DEMENTIA WITHOUT BEHAVIORAL DISTURBANCE (3) Atrial fibrillation Code(s): I48.91 - UNSPECIFIED ATRIAL FIBRILLATION (4) COPD (chronic obstructive pulmonary disease) Code(s): J44.9 - CHRONIC OBSTRUCTIVE PULMONARY DISEASE, UNSPECIFIED Assessment/Plan FACILITY ACQUIRED PNEUMONIA COPD FORMER SMOKER DEMENTIA HTN AF HLD ASHD IBS O2 TO KEEP SAT > THAN 90% ANTIBIOTICS/SHORT COURSE STEROIDS BRONCHODILATORS DVT/GI PROPHYLAXSIS DR PATEL
[2018-06-06] MEDS ORDERED: MAGNESIUM SULF 50% (8.12 MEQ/2 ML-1 GM VIAL) IVPB ONE (13:27)
--- NOTE | 2018-06-06 13:33 | PN ---
Physical Exam: SUBJECTIVE: Patient seen and examined, Patient sitting in bed for recliner, more awake today confused, reports ongoing cough son and [id number] at bedside OBJECTIVE:Patient is a 82-year-old female with a past medical history of dementia, Anxiety/depression and hypertension. Patient was admitted from the emergency department for sepsis and acute pneumonia Vital Signs Period Temp Pulse Resp BP Sys/Braga Pulse Ox Last 24 Hr 97.6 F-97.9 F 78-98 20-20 132-146/52-61 93-94 GENERAL: The patient is awake, alert, and fully oriented, in no acute distress. HEAD: Normal with no signs of trauma. EYES: PERRL, extraocular movements intact, sclera anicteric, conjunctiva clear. No ptosis. ENT: Ears normal, nares patent, oropharynx clear without exudates, moist mucous membranes. NECK: Trachea midline, full range of motion, supple. LUNGS: Breath sounds equal, Diminished to bases coarse rhonchi noted to apex is mild inspiratory wheeze, RR 20, no crackles, no accessory muscle use. HEART: Regular rate and rhythm, S1, S2 without murmur, rub or gallop. ABDOMEN: Soft, nontender, nondistended, normoactive bowel sounds, no guarding, no rebound, no hepatosplenomegaly, no masses. EXTREMITIES: 2+ pulses, warm, well-perfused, no edema. NEUROLOGICAL: Cranial nerves II through XII grossly intact. Normal speech, gait not observed. PSYCH: Normal mood, normal affect. SKIN: Warm, dry, normal turgor, no rashes or lesions noted Laboratory Results - last 24 hr 06/05/18 06/06/18 06/06/18 07:30 07:30 07:30 WBC 16.4 H RBC 3.95 Hgb 11.2 Hct 35.0 MCV 88.6 MCH 28.3 MCHC 32.0 RDW 13.9 Plt Count 311 MPV 8.2 Absolute Neuts (auto) 14.2 Neutrophils % 86.1 H Lymphocytes % 7.6 L Monocytes % 6.1 Eosinophils % 0.1 Basophils % 0.1 Sodium 140 141 Potassium 4.1 3.9 Chloride 107 106 Carbon Dioxide 27 27 Anion Gap 6 L 8 BUN 16 17 Creatinine 0.6 0.8 Creat Clearance w eGFR > 60 > 60 Random Glucose 127 H 96 D Calcium 8.4 8.7 Phosphorus 2.3 L D Magnesium 1.9 Active Medications Generic Name Dose Route Start Last Admin Trade Name Freq PRN Reason Stop Dose Admin Albuterol/Ipratropium 1 amp 06/06/18 09:55 Duoneb - NEB RQID PRN WHEEZING Alprazolam 0.5 mg 06/04/18 21:40 06/06/18 09:23 Xanax - PO 0.5 mg Q6H PRN Administration ANXIETY Amlodipine Besylate 5 mg 06/05/18 10:00 06/06/18 09:22 Norvasc - PO 5 mg DAILY AZAEL Administration Aspirin 81 mg 06/05/18 10:00 06/06/18 09:21 Asa - PO 81 mg DAILY AZAEL Administration Atorvastatin Calcium 10 mg 06/04/18 22:00 06/05/18 21:17 Lipitor - PO 10 mg HS AZAEL Administration Cholecalciferol 1,000 unit 06/05/18 10:00 06/06/18 09:25 Vitamin D3 - PO 1,000 unit DAILY AZAEL Administration Enoxaparin Sodium 40 mg 06/05/18 10:00 06/06/18 09:22 Lovenox - SQ 40 mg DAILY AZAEL Administration Famotidine 20 mg 06/05/18 11:00 06/06/18 09:22 Pepcid - PO 20 mg BID AZAEL Administration Ceftriaxone Sodium 1 gm in 50 mls @ 100 mls/hr 06/05/18 10:00 06/06/18 09:27 Rocephin 1gm Ivpb (Pre-Docked) IVPB 100 mls/hr DAILY AZAEL Administration Protocol Azithromycin 250 mls @ 250 mls/hr 06/05/18 10:00 06/06/18 09:25 Zithromax 500mg Ivpb (Pre-Docked) IVPB 250 mls/hr DAILY AZAEL Administration Magnesium Sulfate/Dextrose 1 gm in 100 mls @ 100 mls/hr 06/06/18 14:00 Magnesium 1gm/D5w - IVPB 06/06/18 14:59 ONCE ONE Lactobacillus Acidophilus 1 tab 06/05/18 11:00 06/06/18 09:22 Bacid - PO 1 tab DAILY AZAEL Administration Levothyroxine Sodium 100 mcg 06/05/18 07:00 06/06/18 06:22 Synthroid - PO 100 mcg DAILY@0700 AZAEL Administration Methylprednisolone Sodium Succinate 20 mg 06/05/18 18:00 06/06/18 09:18 Solu-Medrol - IVPUSH 20 mg Q8H-IV [facility]AEL Administration Mirtazapine 15 mg 06/04/18 22:00 06/05/18 21:18 Remeron - PO 15 mg HS AZAEL Administration Potassium Phos/Sodium Phos 1 packet 06/06/18 13:30 Phos-Nak Packet - PO BID AZAEL Microbiology 06/05/18 14:42 Legionella Antigen - Final Urine For Antigen Detection Streptococcus pneumoniae Antigen (M - Final 06/04/18 18:14 Urine Culture - Final Urine - Urine Clean Catch NO GROWTH OBTAINED 06/04/18 14:59 Blood Culture - Preliminary Blood - Peripheral Venous NO GROWTH OBTAINED AFTER 24 HOURS, INCUBATION TO CONTINUE FOR 4 DAYS. 06/04/18 14:59 Blood Culture - Preliminary Blood - Peripheral Venous NO GROWTH OBTAINED AFTER 24 HOURS, INCUBATION TO CONTINUE FOR [address] of chest: Consistent with acute pneumonia of left upper lobe, small pleural effusion ASSESSMENT/PLAN: 1) ID sepsis secondary to CAP - wbc trending upward, May be secondary to steroids, patient is afebrile, continue zithromax and rocephin - urine antigens Negative, blood and urine culture negative to date 2) pulm CAP -continue Zithromax and rocephin copd - Continue Solu-Medrol 20 mg 3 times a day as per pulmonary - appreciate pulmonary input 3) cardiovascular HTN - Restart Norvasc, strict Blood pressure monitoring HLD - cont home meds 4) endo hypothyroid - cont home synthroid, pending TSH 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 Visit type - Emergency Visit Emergency Visit: Yes ED Registration Date: 06/04/18 Care time: The patient presented to the Emergency Department on the above date and was hospitalized for further evaluation of their emergent condition. - New Patient This patient is new to me today: No - Critical Care Critical Care patient: No - Discharge Referral Referred to [facility] Med P.C.: No
[2018-06-06] MEDS ORDERED: MAGNESIUM 1GM/D5W - 1 GM/100 ML IVPB IVPB ONE (14:00)
[2018-06-06] MEDS: NAPH,MB-DB/K PH,MBDB POWDER PACKET PO SCH ×2 (14:19→21:26)
[2018-06-06] MEDS ORDERED: ALPRAZolam 0.25 MG TABLET PO ONE (19:02)
[2018-06-06] MEDS: MIRTAZAPINE 15 MG TABLET (FP) PO SCH (21:25)
[2018-06-06] MEDS: ATORVASTATIN CA 10 MG TABLET (FP) PO SCH (21:26)
[2018-06-07] MEDS: ALPRAZolam 0.25 MG TABLET PO PRN ×4 (03:16→21:28)
[2018-06-07] MEDS: methylPREDNISolone NA SUCC 40 MG/1 ML VIAL IVPUSH SCH ×3 (06:15→17:19)
[2018-06-07 08:08] LABS: BASO % 1.1 % (0-2.0); EOS % 0.3 % (0-4.5); HEMOGLOBIN 11.7 GM/dl (10.7-15.3); LYMPH % 12.8 % (8-40); MCH 29.1 pg (25.7-33.7); MCHC 32.6 g/dl (32.0-36.0); MEAN CELL VOLUME 89.3 fl (80-96); MEAN PLT VOLUME 8.6 fl (7.5-11.1); MONO % 6.9 % (3.8-10.2); NEUT % 78.9 % (42.8-82.8); PLATELET COUNT 278 K/MM3 (134-434); RBC 4.03 M/mm3 (3.60-5.2); RDW 14.1 % (11.6-15.6); WHITE BLOOD COUNT 11.3 K/mm3 (4.0-10.8)
[2018-06-07 08:15] LABS: ANION GAP 6 MMOL/L (8-16); BLOOD UREA NITROGEN 17 mg/dl (7-18); CALCIUM 8.2 mg/dl (8.4-10.2); CHLORIDE 103 mmol/L (98-107); CO2 32 mmol/L (22-28); CREATININE 0.6 mg/dl (0.6-1.3); GLUCOSE,RANDOM 101 mg/dl (74-106); MAGNESIUM 2.1 mg/dL (1.8-2.4); PHOSPHOROUS 3.3 mg/dl (2.5-4.6); POTASSIUM 4.3 mmol/L (3.5-5.1); SODIUM 141 mmol/L (136-145)
[2018-06-07] MEDS: LEVOTHYROXINE NA 100 MCG TABLET (FP) PO SCH (09:29)
[2018-06-07] MEDS ORDERED: ALBUTEROL SO4 2.5/IPRATROPIUM 0.5 INH SOL 3 ML VIAL.NEB. NEB ONE (09:30)
--- NOTE | 2018-06-07 10:46 | PN ---
Progress Note, Physician History of Present Illness: PULMONARY AWAKE,CONFUSED,OOB-CHAIR,STILL CONGESTED - Current Medication List Current Medications: Active Medications Albuterol/Ipratropium (Duoneb -) 1 amp NEB RQID PRN PRN Reason: WHEEZING Alprazolam (Xanax -) 0.5 mg PO Q6H PRN PRN Reason: ANXIETY Last Admin: 06/07/18 03:16 Dose: 0.5 mg Amlodipine Besylate (Norvasc -) 5 mg PO DAILY COUNT [facility]CLUD[facility] Last Admin: 06/06/18 09:22 Dose: 5 mg Aspirin (Asa -) 81 mg PO DAILY COUNT INCLUDES [facility] Last Admin: 06/06/18 09:21 Dose: 81 mg Atorvastatin Calcium (Lipitor -) 10 mg PO HS COUNT INCLUDES [facility] Last Admin: 06/06/18 21:26 Dose: 10 mg Cholecalciferol (Vitamin D3 -) 1,000 unit PO DAILY COUNT [facility]CLUD[facility] Last Admin: 06/06/18 09:25 Dose: 1,000 unit Enoxaparin Sodium (Lovenox -) 40 mg SQ DAILY COUNT [facility]CLUDES [facility] Last Admin: 06/06/18 09:22 Dose: 40 mg Famotidine (Pepcid -) 20 mg PO BID COUNT [facility]CLUDES [facility] Last Admin: 06/06/18 21:26 Dose: 20 mg Ceftriaxone Sodium (Rocephin 1gm Ivpb (Pre-Docked)) 1 gm in 50 mls @ 100 mls/ hr IVPB DAILY COUNT [facility]CLUDES [facility]; Protocol Last Admin: 06/06/18 09:27 Dose: 100 mls/hr Azithromycin (Zithromax 500mg Ivpb (Pre-Docked)) 250 mls @ 250 mls/hr IVPB DAILY COUNT [facility]CLUDES [facility] Last Admin: 06/06/18 09:25 Dose: 250 mls/hr Lactobacillus Acidophilus (Bacid -) 1 tab PO DAILY AZAEL Last Admin: 06/06/18 09:22 Dose: 1 tab Levothyroxine Sodium (Synthroid -) 100 mcg PO DAILY@0700 COUNT [facility]CLUDES [facility] Last Admin: 06/07/18 09:29 Dose: 100 mcg Methylprednisolone Sodium Succinate (Solu-Medrol -) 20 mg IVPUSH Q8H-IV AZAEL Last Admin: 06/07/18 06:15 Dose: Not Given Mirtazapine (Remeron -) 15 mg PO HS COUNT [facility]CLUDES [facility] Last Admin: 06/06/18 21:25 Dose: 15 mg Potassium Phos/Sodium Phos (Phos-Nak Packet -) 1 packet PO BID AZAEL Last Admin: 06/06/18 21:26 Dose: 1 packet - Objective Vital Signs: Vital Signs Temperature 98.8 F 06/07/18 05:34 Pulse Rate 81 06/07/18 05:34 Respiratory Rate 20 06/07/18 05:34 Blood Pressure 134/71 06/07/18 05:34 O2 Sat by Pulse Oximetry (%) 94 L 06/07/18 05:34 Constitutional: Yes: Well Nourished, Calm, Other (CCOMFUSED) Eyes: Yes: WNL HENT: Yes: WNL Neck: Yes: WNL Cardiovascular: Yes: Pulse Irregular, S1, S2 Respiratory: Yes: Rhonchi, Wheezes (SCATTERED NOEL WHEEZES AND RHONCHI) Gastrointestinal: Yes: Normal Bowel Sounds, Soft Extremities: Yes: WNL Edema: No Labs: CBC, BMP 06/07/18 07:15 06/07/18 07:15 INR, PTT INR 1.52 (0.82-1.09) H 06/04/18 14:55 Assessment/Plan Problem List - Problems (1) Pneumonia Code(s): J18.9 - PNEUMONIA, UNSPECIFIED ORGANISM (2) Dementia Code(s): F03.90 - UNSPECIFIED DEMENTIA WITHOUT BEHAVIORAL DISTURBANCE (3) Atrial fibrillation Code(s): I48.91 - UNSPECIFIED ATRIAL FIBRILLATION (4) COPD (chronic obstructive pulmonary disease) Code(s): J44.9 - CHRONIC OBSTRUCTIVE PULMONARY DISEASE, UNSPECIFIED Assessment/Plan FACILITY ACQUIRED PNEUMONIA COPD FORMER SMOKER DEMENTIA HTN AF HLD ASHD IBS O2 TO KEEP SAT > THAN 90% ANTIBIOTICS TAPER STEROIDS BRONCHODILATORS DVT/GI PROPHYLAXSIS DR PATEL
[2018-06-07] MEDS: ASPIRIN 81 MG CHEWABLE TABLETS PO SCH (11:00)
[2018-06-07] MEDS: FAMOTIDINE 20 MG TABLET PO SCH ×2 (11:00→21:28)
[2018-06-07] MEDS: AZITHROMYCIN IVPB 250 ML IVPB SCH (11:00)
[2018-06-07] MEDS: NAPH,MB-DB/K PH,MBDB POWDER PACKET PO SCH ×2 (11:00→21:28)
[2018-06-07] MEDS: LACTOBACILLUS ACIDOPHILUS 1 TABLET PO SCH (11:00)
[2018-06-07] MEDS: CEFTRIAXONE 1 GM/50 ML BAG IVPB SCH (11:00)
[2018-06-07] MEDS: ENOXAPARIN NA (PORCINE) 40 MG/0.4 ML DISP.SYRIN SQ SCH (11:00)
[2018-06-07] MEDS: amLODIPine BESYLATE 5 MG TABLET (FP) PO SCH (11:00)
[2018-06-07] MEDS: CHOLECALCIFEROL (VITAMIN D3) 1,000 UNIT TABLET (FP) PO SCH (11:00)
--- NOTE | 2018-06-07 13:18 | PN ---
Physical Exam: SUBJECTIVE: Patient seen and examined, Son at bedside, patient is resting comfortably in bed, more alert, orientated times person and place, denies any shortness of breath OBJECTIVE: patient is a 82-year-old female with a past medical history of dementia, Anxiety/depression and hypertension. Patient was admitted from the emergency department for sepsis and acute pneumonia Vital Signs Period Temp Pulse Resp BP Sys/Braga Pulse Ox Last 24 Hr 97.9 F-98.8 F 76-89 18-20 112-151/50-71 90-97 GENERAL: The patient is awake, alert, and oriented times person and place, in no acute distress. HEAD: Normal with no signs of trauma. EYES: PERRL, extraocular movements intact, sclera anicteric, conjunctiva clear. No ptosis. ENT: Ears normal, nares patent, oropharynx clear without exudates, moist mucous membranes. NECK: Trachea midline, full range of motion, supple. LUNGS: Breath sounds equal, clear to auscultation bilaterally, no wheezes, no crackles, no accessory muscle use. HEART: Regular rate and rhythm, S1, S2 without murmur, rub or gallop. ABDOMEN: Soft, nontender, nondistended, normoactive bowel sounds, no guarding, no rebound, no hepatosplenomegaly, no masses. EXTREMITIES: 2+ pulses, warm, well-perfused, no edema. NEUROLOGICAL: Cranial nerves II through XII grossly intact. Normal speech, gait not observed. PSYCH: Normal mood, normal affect. SKIN: Warm, dry, normal turgor, no rashes or lesions noted Laboratory Results - last 24 hr 06/07/18 06/07/18 07:15 07:15 WBC 11.3 H RBC 4.03 Hgb 11.7 Hct 36.0 MCV 89.3 MCH 29.1 MCHC 32.6 RDW 14.1 Plt Count 278 MPV 8.6 Absolute Neuts (auto) 9.0 Neutrophils % 78.9 Lymphocytes % 12.8 Monocytes % 6.9 Eosinophils % 0.3 Basophils % 1.1 Sodium 141 Potassium 4.3 Chloride 103 Carbon Dioxide 32 H Anion Gap 6 L BUN 17 Creatinine 0.6 Creat Clearance w eGFR > 60 Random Glucose 101 Calcium 8.2 L Phosphorus 3.3 D Magnesium 2.1 Active Medications Generic Name Dose Route Start Last Admin Trade Name Freq PRN Reason Stop Dose Admin Albuterol/Ipratropium 1 amp 06/06/18 09:55 Duoneb - NEB RQID PRN WHEEZING Alprazolam 0.5 mg 06/04/18 21:40 06/07/18 11:16 Xanax - PO 0.5 mg Q6H PRN Administration ANXIETY Amlodipine Besylate 5 mg 06/05/18 10:00 06/07/18 11:00 Norvasc - PO 5 mg DAILY AZAEL Administration Aspirin 81 mg 06/05/18 10:00 06/07/18 11:00 Asa - PO 81 mg DAILY AZAEL Administration Atorvastatin Calcium 10 mg 06/04/18 22:00 06/06/18 21:26 Lipitor - PO 10 mg HS AZAEL Administration Cholecalciferol 1,000 unit 06/05/18 10:00 06/07/18 11:00 Vitamin D3 - PO 1,000 unit DAILY AZAEL Administration Enoxaparin Sodium 40 mg 06/05/18 10:00 06/07/18 11:00 Lovenox - SQ 40 mg DAILY AZAEL Administration Famotidine 20 mg 06/05/18 11:00 06/07/18 11:00 Pepcid - PO 20 mg BID AZAEL Administration Ceftriaxone Sodium 1 gm in 50 mls @ 100 mls/hr 06/05/18 10:00 06/07/18 11:00 Rocephin 1gm Ivpb (Pre-Docked) IVPB 100 mls/hr DAILY AZAEL Administration Protocol Azithromycin 250 mls @ 250 mls/hr 06/05/18 10:00 06/07/18 11:00 Zithromax 500mg Ivpb (Pre-Docked) IVPB 250 mls/hr DAILY AZAEL Administration Lactobacillus Acidophilus 1 tab 06/05/18 11:00 06/07/18 11:00 Bacid - PO 1 tab DAILY AZAEL Administration Levothyroxine Sodium 100 mcg 06/05/18 07:00 06/07/18 09:29 Synthroid - PO 100 mcg DAILY@0700 AZAEL Administration Methylprednisolone Sodium Succinate 20 mg 06/05/18 18:00 06/07/18 11:00 Solu-Medrol - IVPUSH 20 mg Q8H-IV AZAEL Administration Mirtazapine 15 mg 06/04/18 22:00 06/06/18 21:25 Remeron - PO 15 mg HS AZAEL Administration Potassium Phos/Sodium Phos 1 packet 06/06/18 13:30 06/07/18 11:00 Phos-Nak Packet - PO 1 packet BID AZAEL Administration Microbiology 06/04/18 14:59 Blood - Peripheral Venous Blood Culture - Preliminary Pending Organism 06/04/18 14:59 Blood - Peripheral Venous Blood Culture - Preliminary NO GROWTH OBTAINED AFTER 48 HOURS, INCUBATION TO CONTINUE FOR 3 DAYS. 06/05/18 14:42 Urine For Antigen Detection Legionella Antigen - Final, negative 06/05/18 14:42 Urine For Antigen Detection Streptococcus pneumoniae Antigen (M - Final, negative 06/04/18 18:14 Urine - Urine Clean Catch Urine Culture - Final NO GROWTH OBTAINED IMAGING ct of chest: Consistent with acute pneumonia of left upper lobe, small pleural effusion ASSESSMENT/PLAN: 1) ID sepsis secondary to CAP - improving, wbc trending downward, patient is afebrile, continue zithromax and rocephin - one positive prelim blood culture, repeat blood cultures ordered, urine antigens Negative, blood and urine culture negative to date 2) pulm CAP -continue Zithromax and rocephin copd - Continue Solu-Medrol 20 mg 3 times a day as per pulmonary - pulmonary consulted and following 3) cardiovascular HTN - continue Norvasc, strict Blood pressure monitoring HLD - cont home meds 4) endo hypothyroid - cont home synthroid, pending TSH 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 Visit type - Emergency Visit Emergency Visit: Yes ED Registration Date: 06/04/18 Care time: The patient presented to the Emergency Department on the above date and was hospitalized for further evaluation of their emergent condition. - New Patient This patient is new to me today: No - Critical Care Critical Care patient: No - Discharge Referral Referred to [facility] Med P.C.: No
[2018-06-07] MEDS: MIRTAZAPINE 15 MG TABLET (FP) PO SCH (21:28)
[2018-06-07] MEDS: ATORVASTATIN CA 10 MG TABLET (FP) PO SCH (21:28)
[2018-06-08] MEDS: methylPREDNISolone NA SUCC 40 MG/1 ML VIAL IVPUSH SCH ×3 (02:08→17:40)
[2018-06-08] MEDS: ALPRAZolam 0.25 MG TABLET PO PRN ×4 (02:19→23:20)
[2018-06-08] MEDS: LEVOTHYROXINE NA 100 MCG TABLET (FP) PO SCH (06:42)
--- NOTE | 2018-06-08 07:43 | PN ---
Progress Note, Physician History of Present Illness: PULMONARY ALERT,STILL C/O SOB,+ COUGH - Current Medication List Current Medications: Active Medications Albuterol/Ipratropium (Duoneb -) 1 amp NEB RQID PRN PRN Reason: WHEEZING Alprazolam (Xanax -) 0.5 mg PO Q6H PRN PRN Reason: ANXIETY Last Admin: 06/08/18 02:19 Dose: 0.5 mg Amlodipine Besylate (Norvasc -) 5 mg PO DAILY [facility] Last Admin: 06/07/18 11:00 Dose: 5 mg Aspirin (Asa -) 81 mg PO DAILY [facility] Last Admin: 06/07/18 11:00 Dose: 81 mg Atorvastatin Calcium (Lipitor -) 10 mg PO HS [facility] Last Admin: 06/07/18 21:28 Dose: 10 mg Cholecalciferol (Vitamin D3 -) 1,000 unit PO DAILY [facility] Last Admin: 06/07/18 11:00 Dose: 1,000 unit Enoxaparin Sodium (Lovenox -) 40 mg SQ DAILY [facility] Last Admin: 06/07/18 11:00 Dose: 40 mg Famotidine (Pepcid -) 20 mg PO BID [facility] Last Admin: 06/07/18 21:28 Dose: 20 mg Ceftriaxone Sodium (Rocephin 1gm Ivpb (Pre-Docked)) 1 gm in 50 mls @ 100 mls/ hr IVPB DAILY [facility]; Protocol Last Admin: 06/07/18 11:00 Dose: 100 mls/hr Azithromycin (Zithromax 500mg Ivpb (Pre-Docked)) 250 mls @ 250 mls/hr IVPB DAILY [facility] Last Admin: 06/07/18 11:00 Dose: 250 mls/hr Lactobacillus Acidophilus (Bacid -) 1 tab PO DAILY AZAEL Last Admin: 06/07/18 11:00 Dose: 1 tab Levothyroxine Sodium (Synthroid -) 100 mcg PO DAILY@0700 [facility] Last Admin: 06/08/18 06:42 Dose: Not Given Methylprednisolone Sodium Succinate (Solu-Medrol -) 20 mg IVPUSH Q8H-IV AZAEL Last Admin: 06/08/18 02:08 Dose: 20 mg Mirtazapine (Remeron -) 15 mg PO HS [facility] Last Admin: 06/07/18 21:28 Dose: 15 mg Potassium Phos/Sodium Phos (Phos-Nak Packet -) 1 packet PO BID AZAEL Last Admin: 06/07/18 21:28 Dose: 1 packet - Objective Vital Signs: Vital Signs Temperature 98.2 F 06/08/18 06:00 Pulse Rate 67 06/08/18 06:00 Respiratory Rate 20 06/08/18 06:00 Blood Pressure 134/62 06/08/18 06:00 O2 Sat by Pulse Oximetry (%) 90 L 06/08/18 06:00 Constitutional: Yes: Well Nourished, Calm Eyes: Yes: WNL HENT: Yes: WNL Neck: Yes: WNL Cardiovascular: Yes: Pulse Irregular, S1, S2 Respiratory: Yes: Rales (BILATERAL RALES AND SCATTERED RHONCHI) Gastrointestinal: Yes: Normal Bowel Sounds, Soft Extremities: Yes: WNL Edema: No Labs: INR, PTT INR 1.52 (0.82-1.09) H 06/04/18 14:55 - ....Imaging Chest X-ray: Report Reviewed, Image Reviewed Assessment/Plan Problem List - Problems (1) Pneumonia Code(s): J18.9 - PNEUMONIA, UNSPECIFIED ORGANISM (2) Dementia Code(s): F03.90 - UNSPECIFIED DEMENTIA WITHOUT BEHAVIORAL DISTURBANCE (3) Atrial fibrillation Code(s): I48.91 - UNSPECIFIED ATRIAL FIBRILLATION (4) COPD (chronic obstructive pulmonary disease) Code(s): J44.9 - CHRONIC OBSTRUCTIVE PULMONARY DISEASE, UNSPECIFIED Assessment/Plan FACILITY ACQUIRED PNEUMONIA COPD FORMER SMOKER DEMENTIA HTN AF HLD ASHD IBS O2 TO KEEP SAT > THAN 90% ANTIBIOTICS STEROIDS BROVANA DVT/GI PROPHYLAXSIS DR PATEL
[2018-06-08 07:55] LABS: BASO % 0.2 % (0-2.0); EOS % 0.2 % (0-4.5); HEMOGLOBIN 12.5 GM/dl (10.7-15.3); LYMPH % 7.8 % (8-40); MCH 28.6 pg (25.7-33.7); MCHC 32.8 g/dl (32.0-36.0); MEAN PLT VOLUME 7.7 fl (7.5-11.1); MONO % 3.9 % (3.8-10.2); NEUT % 87.9 % (42.8-82.8); PLATELET COUNT 359 K/MM3 (134-434); RBC 4.36 M/mm3 (3.60-5.2); RDW 14.3 % (11.6-15.6); WHITE BLOOD COUNT 11.8 K/mm3 (4.0-10.8)
[2018-06-08 08:06] LABS: ANION GAP 8 MMOL/L (8-16); BLOOD UREA NITROGEN 18 mg/dl (7-18); CALCIUM 8.6 mg/dl (8.4-10.2); CHLORIDE 99 mmol/L (98-107); CO2 32 mmol/L (22-28); CREATININE 0.6 mg/dl (0.6-1.3); GLUCOSE,RANDOM 120 mg/dl (74-106); MAGNESIUM 2.1 mg/dL (1.8-2.4); PHOSPHOROUS 3.2 mg/dl (2.5-4.6); POTASSIUM 4.6 mmol/L (3.5-5.1); SODIUM 139 mmol/L (136-145)
[2018-06-08] MEDS ORDERED: ALBUTEROL SO4 2.5/IPRATROPIUM 0.5 INH SOL 3 ML VIAL.NEB. NEB ONE (08:44)
--- NOTE | 2018-06-08 08:48 | PN ---
Physical Exam: SUBJECTIVE: Patient seen and examined, sitting in bedside recliner, tolerating meals, reports ongoing cough OBJECTIVE:patient is a 82-year-old female with a past medical history of dementia, Anxiety/depression and hypertension. Patient was admitted from the emergency department for sepsis and acute pneumonia Vital Signs Period Temp Pulse Resp BP Sys/Braga Pulse Ox Last 24 Hr 98.1 F-98.4 F 67-86 19-20 134-155/60-62 90-96 GENERAL: The patient is awake, alert, and fully oriented, in no acute distress. HEAD: Normal with no signs of trauma. EYES: PERRL, extraocular movements intact, sclera anicteric, conjunctiva clear. No ptosis. ENT: Ears normal, nares patent, oropharynx clear without exudates, moist mucous membranes. NECK: Trachea midline, full range of motion, supple. LUNGS: Breath sounds equal, wheezing to billateral apexes, crackles to bilateral bases, moist cough noted, RR 24 no accessory muscle use. HEART: Regular rate and rhythm, S1, S2 without murmur, rub or gallop. ABDOMEN: Soft, nontender, nondistended, normoactive bowel sounds, no guarding, no rebound, no hepatosplenomegaly, no masses. EXTREMITIES: 2+ pulses, warm, well-perfused, no edema. NEUROLOGICAL: Cranial nerves II through XII grossly intact. Normal speech, gait not observed. PSYCH: Normal mood, normal affect. SKIN: Warm, dry, normal turgor, no rashes or lesions noted Laboratory Results - last 24 hr 06/05/18 06/08/18 06/08/18 07:30 07:15 07:15 WBC 11.8 H RBC 4.36 Hgb 12.5 Hct 38.0 MCV 87.0 MCH 28.6 MCHC 32.8 RDW 14.3 Plt Count 359 MPV 7.7 Absolute Neuts (auto) 10.4 Neutrophils % 87.9 H Lymphocytes % 7.8 L Monocytes % 3.9 Eosinophils % 0.2 Basophils % 0.2 Sodium 139 Potassium 4.6 Chloride 99 Carbon Dioxide 32 H Anion Gap 8 BUN 18 Creatinine 0.6 Creat Clearance w eGFR > 60 Random Glucose 120 H Calcium 8.6 Phosphorus 3.2 Magnesium 2.1 TSH 2.01 Active Medications Generic Name Dose Route Start Last Admin Trade Name Freq PRN Reason Stop Dose Admin Albuterol/Ipratropium 1 amp 06/06/18 09:55 Duoneb - NEB RQID PRN WHEEZING Alprazolam 0.5 mg 06/04/18 21:40 06/08/18 08:25 Xanax - PO 0.5 mg Q6H PRN Administration ANXIETY Amlodipine Besylate 5 mg 06/05/18 10:00 06/07/18 11:00 Norvasc - PO 5 mg DAILY AZAEL Administration Aspirin 81 mg 06/05/18 10:00 06/07/18 11:00 Asa - PO 81 mg DAILY AZAEL Administration Atorvastatin Calcium 10 mg 06/04/18 22:00 06/07/18 21:28 Lipitor - PO 10 mg HS AZAEL Administration Cholecalciferol 1,000 unit 06/05/18 10:00 06/07/18 11:00 Vitamin D3 - PO 1,000 unit DAILY AZAEL Administration Enoxaparin Sodium 40 mg 06/05/18 10:00 06/07/18 11:00 Lovenox - SQ 40 mg DAILY AZAEL Administration Famotidine 20 mg 06/05/18 11:00 06/07/18 21:28 Pepcid - PO 20 mg BID AZAEL Administration Ceftriaxone Sodium 1 gm in 50 mls @ 100 mls/hr 06/05/18 10:00 06/07/18 11:00 Rocephin 1gm Ivpb (Pre-Docked) IVPB 100 mls/hr DAILY AZAEL Administration Protocol Azithromycin 250 mls @ 250 mls/hr 06/05/18 10:00 06/07/18 11:00 Zithromax 500mg Ivpb (Pre-Docked) IVPB 250 mls/hr DAILY AZAEL Administration Lactobacillus Acidophilus 1 tab 06/05/18 11:00 06/07/18 11:00 Bacid - PO 1 tab DAILY AZAEL Administration Levothyroxine Sodium 100 mcg 06/05/18 07:00 06/08/18 06:42 Synthroid - PO Not Given DAILY@0700 AZAEL Methylprednisolone Sodium Succinate 20 mg 06/05/18 18:00 06/08/18 02:08 Solu-Medrol - IVPUSH 20 mg Q8H-IV AZAEL Administration Mirtazapine 15 mg 06/04/18 22:00 06/07/18 21:28 Remeron - PO 15 mg HS AZAEL Administration Potassium Phos/Sodium Phos 1 packet 06/06/18 13:30 06/07/18 21:28 Phos-Nak Packet - PO 1 packet BID AZAEL Administration Microbiology 06/04/18 14:59 Blood - Peripheral Venous Blood Culture - Preliminary Pending Organism 06/07/18 08:45 Blood - Peripheral Venous Blood Culture - Preliminary NO GROWTH OBTAINED AFTER 24 HOURS, INCUBATION TO CONTINUE FOR 4 DAYS. 06/07/18 08:30 Blood - Peripheral Venous Blood Culture - Preliminary NO GROWTH OBTAINED AFTER 24 HOURS, INCUBATION TO CONTINUE FOR 4 DAYS. 06/04/18 14:59 Blood - Peripheral Venous Blood Culture - Preliminary NO GROWTH OBTAINED AFTER 72 HOURS, INCUBATION TO CONTINUE FOR 2 DAYS. 06/05/18 14:42 Urine For Antigen Detection Legionella Antigen - Final, negative 06/05/18 14:42 Urine For Antigen Detection Streptococcus pneumoniae Antigen (M - Final, negative 06/04/18 18:14 Urine - Urine Clean Catch Urine Culture - Final NO GROWTH OBTAINED IMAGING ct of chest: Consistent with acute pneumonia of left upper lobe, small pleural effusion cxr (06/07): bibaslilar infilitrates, left upper lobe infiltrate ASSESSMENT/PLAN: 1) ID sepsis secondary to CAP - improving, wbc trending downward, patient is afebrile, continue zithromax and rocephin - one positive prelim blood culture, repeat blood cultures negative to date 2) pulm CAP -continue Zithromax and rocephin copd - Continue Solu-Medrol 20 mg 3 times a day with standing duonebs - pulmonary consulted and following 3) cardiovascular HTN - continue Norvasc, strict Blood pressure monitoring HLD - cont home meds 4) endo hypothyroid - cont home synthroid, pending TSH 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 Visit type - Emergency Visit Emergency Visit: Yes ED Registration Date: 06/04/18 Care time: The patient presented to the Emergency Department on the above date and was hospitalized for further evaluation of their emergent condition. - New Patient This patient is new to me today: No - Critical Care Critical Care patient: No - Discharge Referral Referred to [facility] Med P.C.: No
[2018-06-08] MEDS: FAMOTIDINE 20 MG TABLET PO SCH ×2 (09:10→21:12)
[2018-06-08] MEDS: CHOLECALCIFEROL (VITAMIN D3) 1,000 UNIT TABLET (FP) PO SCH (09:10)
[2018-06-08] MEDS: amLODIPine BESYLATE 5 MG TABLET (FP) PO SCH (09:10)
[2018-06-08] MEDS: ASPIRIN 81 MG CHEWABLE TABLETS PO SCH (09:11)
[2018-06-08] MEDS: ENOXAPARIN NA (PORCINE) 40 MG/0.4 ML DISP.SYRIN SQ SCH (09:13)
[2018-06-08] MEDS: LACTOBACILLUS ACIDOPHILUS 1 TABLET PO SCH (09:14)
[2018-06-08] MEDS ORDERED: ALBUTEROL SO4 2.5/IPRATROPIUM 0.5 INH SOL 3 ML VIAL.NEB. NEB PRN (10:02)
[2018-06-08] MEDS: NAPH,MB-DB/K PH,MBDB POWDER PACKET PO SCH ×2 (10:15→21:12)
[2018-06-08] MEDS: CEFTRIAXONE 1 GM/50 ML BAG IVPB SCH (10:20)
[2018-06-08] MEDS: AZITHROMYCIN IVPB 250 ML IVPB SCH (10:25)
[2018-06-08] MEDS ORDERED: ALBUTEROL SO4 2.5/IPRATROPIUM 0.5 INH SOL 3 ML VIAL.NEB. NEB SCH (12:00)
[2018-06-08] MEDS: ARFORMOTEROL TARTRATE 15 MCG/2 ML VIAL NEB SCH ×2 (20:06→21:11)
[2018-06-08] MEDS: ATORVASTATIN CA 10 MG TABLET (FP) PO SCH (21:10)
[2018-06-08] MEDS: MIRTAZAPINE 15 MG TABLET (FP) PO SCH (21:12)
[2018-06-09] MEDS: methylPREDNISolone NA SUCC 40 MG/1 ML VIAL IVPUSH SCH ×3 (01:32→18:03)
[2018-06-09] MEDS: ALPRAZolam 0.25 MG TABLET PO PRN ×4 (01:45→22:45)
[2018-06-09] MEDS: LEVOTHYROXINE NA 100 MCG TABLET (FP) PO SCH (06:13)
[2018-06-09 08:46] LABS: HEMATOCRIT 39.3 % (32.4-45.2); MCH 29.1 pg (25.7-33.7); MCHC 33.1 g/dl (32.0-36.0); MEAN CELL VOLUME 87.9 fl (80-96); MEAN PLT VOLUME 7.9 fl (7.5-11.1); PLATELET COUNT 374 K/MM3 (134-434); RBC 4.47 M/mm3 (3.60-5.2); RDW 13.8 % (11.6-15.6); WHITE BLOOD COUNT 14.6 K/mm3 (4.0-10.8)
[2018-06-09 08:51] LABS: ANION GAP 8 MMOL/L (8-16); BLOOD UREA NITROGEN 22 mg/dl (7-18); CALCIUM 8.8 mg/dl (8.4-10.2); CHLORIDE 100 mmol/L (98-107); CO2 31 mmol/L (22-28); CREATININE 0.6 mg/dl (0.6-1.3); GLUCOSE,RANDOM 127 mg/dl (74-106); MAGNESIUM 2.1 mg/dL (1.8-2.4); POTASSIUM 5.2 mmol/L (3.5-5.1); SODIUM 139 mmol/L (136-145)
--- NOTE | 2018-06-09 08:58 | PN ---
Physical Exam: SUBJECTIVE: Patient seen and examined. No dyspnea at rest. No fevers/chills. Has not tried to get out of bed. OBJECTIVE: Vital Signs Period Temp Pulse Resp BP Sys/Braga Pulse Ox Last 24 Hr 97.9 F-98.3 F 74-80 18-19 141-169/65-82 93-95 GENERAL: The patient is awake, alert, and oriented x 1, in no acute distress. HEAD: Normal with no signs of trauma. EYES: PERRL, extraocular movements intact, sclera anicteric, conjunctiva clear. No ptosis. ENT: Ears normal, nares patent, oropharynx clear without exudates, moist mucous membranes. NECK: Trachea midline, full range of motion, supple. LUNGS: Breath sounds equal, clear to auscultation bilaterally, no wheezes, no crackles, no accessory muscle use. HEART: Regular rate and rhythm, S1, S2 without murmur, rub or gallop. ABDOMEN: Soft, nontender, nondistended, normoactive bowel sounds, no guarding, no rebound, no hepatosplenomegaly, no masses. EXTREMITIES: 2+ pulses, warm, well-perfused, no edema. NEUROLOGICAL: Cranial nerves II through XII grossly intact. Normal speech, gait not observed. PSYCH: Normal mood, normal affect. SKIN: Warm, dry, normal turgor, no rashes or lesions noted Laboratory Results - last 24 hr 06/09/18 06/09/18 07:20 07:20 WBC 14.6 H RBC 4.47 Hgb 13.0 Hct 39.3 MCV 87.9 MCH 29.1 MCHC 33.1 RDW 13.8 Plt Count 374 MPV 7.9 Absolute Neuts (auto) 12.9 Neutrophils % No Result Required. Lymphocytes % No Result Required. Sodium 139 Potassium 5.2 H Chloride 100 Carbon Dioxide 31 H Anion Gap 8 BUN 22 H Creatinine 0.6 Creat Clearance w eGFR > 60 Random Glucose 127 H Calcium 8.8 Magnesium 2.1 Active Medications Generic Name Dose Route Start Last Admin Trade Name Freq PRN Reason Stop Dose Admin Albuterol/Ipratropium 1 amp 06/08/18 10:02 Duoneb - NEB Q4H PRN SHORTNESS OF BREATH Alprazolam 0.5 mg 06/04/18 21:40 06/09/18 01:45 Xanax - PO 0.5 mg Q6H PRN Administration ANXIETY Amlodipine Besylate 5 mg 06/05/18 10:00 06/08/18 09:10 Norvasc - PO 5 mg DAILY AZAEL Administration Arformoterol Tartrate 1 amp 06/08/18 20:00 06/08/18 21:11 [place] (Restricted To Pulmonology/Resp) - NEB Not Given RBID AZAEL Aspirin 81 mg 06/05/18 10:00 06/08/18 09:11 Asa - PO 81 mg DAILY AZAEL Administration Atorvastatin Calcium 10 mg 06/04/18 22:00 06/08/18 21:10 Lipitor - PO 10 mg HS AZAEL Administration Cholecalciferol 1,000 unit 06/05/18 10:00 06/08/18 09:10 Vitamin D3 - PO 1,000 unit DAILY AZAEL Administration Enoxaparin Sodium 40 mg 06/05/18 10:00 06/08/18 09:13 Lovenox - SQ 40 mg DAILY AZAEL Administration Famotidine 20 mg 06/05/18 11:00 06/08/18 21:12 Pepcid - PO 20 mg BID AZAEL Administration Ceftriaxone Sodium 1 gm in 50 mls @ 100 mls/hr 06/05/18 10:00 06/08/18 10:20 Rocephin 1gm Ivpb (Pre-Docked) IVPB 100 mls/hr DAILY AZAEL Administration Protocol Azithromycin 250 mls @ 250 mls/hr 06/05/18 10:00 06/08/18 10:25 Zithromax 500mg Ivpb (Pre-Docked) IVPB 250 mls/hr DAILY AZAEL Administration Lactobacillus Acidophilus 1 tab 06/05/18 11:00 06/08/18 09:14 Bacid - PO 1 tab DAILY AZAEL Administration Levothyroxine Sodium 100 mcg 06/05/18 07:00 06/09/18 06:13 Synthroid - PO 100 mcg DAILY@0700 AZAEL Administration Methylprednisolone Sodium Succinate 20 mg 06/05/18 18:00 06/09/18 01:32 Solu-Medrol - IVPUSH 20 mg Q8H-IV AZAEL Administration Mirtazapine 15 mg 06/04/18 22:00 06/08/18 21:12 Remeron - PO 15 mg HS AZAEL Administration Potassium Phos/Sodium Phos 1 packet 06/06/18 13:30 06/08/18 21:12 Phos-Nak Packet - PO 1 packet BID AZAEL Administration IMAGING Chest CT 06/04: RAÚL PNA with small pleural effusion CXR 06/07: Bibasilar infiltrates, RAÚL infiltrate with pleural effusion ASSESSMENT/PLAN: 1) ID Sepsis secondary to CAP - WBC 14.6 - Afebrile - Discussed prelim pos blood culture with Dr. Patel, suspects contaminant, repeat cultures ngtd - Coninue azithromycin and ceftriaxone (06/05 - ) 2) COPD with exacerbation - Improving - Continue solu-Medrol 20mg q8h, Brovana, albuterol prn - Pulm following 3) HTN - BP at goal, continue Norvasc/ 4) HLD - Continue Atorvastatin 4) Hypothyroidism - Continue levothyroxine - TSH within normal limits at 2.01 5) Anxiety - Long history of benzo use - continue Xanax prn 6) Ppx - Lovenox - PT Dispo: Plan for dc to [facility] 06/12. Visit type - Emergency Visit Emergency Visit: Yes ED Registration Date: 06/04/18 Care time: The patient presented to the Emergency Department on the above date and was hospitalized for further evaluation of their emergent condition. - New Patient This patient is new to me today: Yes Date on this admission: 06/09/18 - Critical Care Critical Care patient: No - Discharge Referral Referred to [facility] Med P.C.: No
[2018-06-09 09:24] LABS: PLATELET ESTIMATE ADEQUATE
[2018-06-09] MEDS: amLODIPine BESYLATE 5 MG TABLET (FP) PO SCH (09:48)
[2018-06-09] MEDS: LACTOBACILLUS ACIDOPHILUS 1 TABLET PO SCH (09:48)
[2018-06-09] MEDS: ARFORMOTEROL TARTRATE 15 MCG/2 ML VIAL NEB SCH ×2 (09:48→21:09)
[2018-06-09] MEDS: FAMOTIDINE 20 MG TABLET PO SCH ×2 (09:48→21:09)
[2018-06-09] MEDS: CEFTRIAXONE 1 GM/50 ML BAG IVPB SCH (09:48)
[2018-06-09] MEDS: ENOXAPARIN NA (PORCINE) 40 MG/0.4 ML DISP.SYRIN SQ SCH (09:49)
[2018-06-09] MEDS: NAPH,MB-DB/K PH,MBDB POWDER PACKET PO SCH ×2 (09:49→21:09)
[2018-06-09] MEDS: ASPIRIN 81 MG CHEWABLE TABLETS PO SCH (09:49)
[2018-06-09] MEDS: CHOLECALCIFEROL (VITAMIN D3) 1,000 UNIT TABLET (FP) PO SCH (09:50)
[2018-06-09] MEDS: AZITHROMYCIN IVPB 250 ML IVPB SCH (10:46)
--- NOTE | 2018-06-09 11:58 | PN ---
Progress Note (short form) - Note Progress Note: PULMONARY VSS/AFEBRILE PALE/SLEEPY ANICTERIC DIMINISHED S1S2 BS+ NO EDEMA LABS/MICRO/IMAGES/NOTES REVIEWED FACILITY ACQUIRED PNEUMONIA COPD/FORMER SMOKER DEMENTIA HTN/AF/HLD/ASHD IBS CULTURES NEGATIVE THUS FAR O2 TO KEEP SAT > THAN 90% ANTIBIOTICS/SHORT COURSE STEROIDS BRONCHODILATORS DVT/GI PROPHYLAXSIS OOB TO CHAIR R JOSH REYNOLDS Problem List - Problems (1) Pneumonia Code(s): J18.9 - PNEUMONIA, UNSPECIFIED ORGANISM (2) Dementia Code(s): F03.90 - UNSPECIFIED DEMENTIA WITHOUT BEHAVIORAL DISTURBANCE (3) Atrial fibrillation Code(s): I48.91 - UNSPECIFIED ATRIAL FIBRILLATION (4) COPD (chronic obstructive pulmonary disease) Code(s): J44.9 - CHRONIC OBSTRUCTIVE PULMONARY DISEASE, UNSPECIFIED
[2018-06-09] MEDS: MIRTAZAPINE 15 MG TABLET (FP) PO SCH (21:09)
[2018-06-09] MEDS: ATORVASTATIN CA 10 MG TABLET (FP) PO SCH (21:09)
[2018-06-10] MEDS: LEVOTHYROXINE NA 100 MCG TABLET (FP) PO SCH (06:35)
[2018-06-10] MEDS: methylPREDNISolone NA SUCC 40 MG/1 ML VIAL IVPUSH SCH ×3 (06:36→18:50)
[2018-06-10] MEDS: ASPIRIN 81 MG CHEWABLE TABLETS PO SCH (09:59)
[2018-06-10] MEDS: ENOXAPARIN NA (PORCINE) 40 MG/0.4 ML DISP.SYRIN SQ SCH (10:03)
[2018-06-10] MEDS: CHOLECALCIFEROL (VITAMIN D3) 1,000 UNIT TABLET (FP) PO SCH (10:03)
[2018-06-10] MEDS: LACTOBACILLUS ACIDOPHILUS 1 TABLET PO SCH (10:03)
[2018-06-10] MEDS: amLODIPine BESYLATE 5 MG TABLET (FP) PO SCH (10:03)
[2018-06-10] MEDS: FAMOTIDINE 20 MG TABLET PO SCH ×2 (10:03→21:17)
[2018-06-10] MEDS: CEFTRIAXONE 1 GM/50 ML BAG IVPB SCH (10:04)
[2018-06-10] MEDS: NAPH,MB-DB/K PH,MBDB POWDER PACKET PO SCH (10:06)
[2018-06-10] MEDS: ARFORMOTEROL TARTRATE 15 MCG/2 ML VIAL NEB SCH ×2 (10:34→20:04)
[2018-06-10] MEDS: AZITHROMYCIN IVPB 250 ML IVPB SCH (10:50)
--- NOTE | 2018-06-10 11:53 | PN ---
Progress Note (short form) - Note Progress Note: Subjective: The patient was seen and examined at the bedside, she has no complaints at this time. She is still on O2. For pending discharge to [facility] on Tuesday Will need pre/post O2 prior to discharge Current Medications Generic Name Dose Route Start Last Admin Trade Name Freq PRN Reason Stop Dose Admin Albuterol/Ipratropium 1 amp 06/08/18 10:02 Duoneb - NEB Q4H PRN SHORTNESS OF BREATH Alprazolam 0.5 mg 06/04/18 21:40 06/09/18 22:45 Xanax - PO 0.5 mg Q6H PRN Administration ANXIETY Amlodipine Besylate 5 mg 06/05/18 10:00 06/10/18 10:03 Norvasc - PO 5 mg DAILY AZAEL Administration Arformoterol Tartrate 1 amp 06/08/18 20:00 06/10/18 10:34 Brovana (Restricted To Pulmonology/Resp) - NEB 1 amp RBID AZAEL Administration Aspirin 81 mg 06/05/18 10:00 06/10/18 09:59 Asa - PO 81 mg DAILY AZAEL Administration Atorvastatin Calcium 10 mg 06/04/18 22:00 06/09/18 21:09 Lipitor - PO 10 mg HS AZAEL Administration Cholecalciferol 1,000 unit 06/05/18 10:00 06/10/18 10:03 Vitamin D3 - PO 1,000 unit DAILY AZAEL Administration Enoxaparin Sodium 40 mg 06/05/18 10:00 06/10/18 10:03 Lovenox - SQ 40 mg DAILY AZAEL Administration Famotidine 20 mg 06/05/18 11:00 06/10/18 10:03 Pepcid - PO 20 mg BID AZAEL Administration Ceftriaxone Sodium 1 gm in 50 mls @ 100 mls/hr 06/05/18 10:00 06/10/18 10:04 Rocephin 1gm Ivpb (Pre-Docked) IVPB 100 mls/hr DAILY AZAEL Administration Protocol Azithromycin 250 mls @ 250 mls/hr 06/05/18 10:00 06/10/18 10:50 Zithromax 500mg Ivpb (Pre-Docked) IVPB 250 mls/hr DAILY AZAEL Administration Lactobacillus Acidophilus 1 tab 06/05/18 11:00 06/10/18 10:03 Bacid - PO 1 tab DAILY AZAEL Administration Levothyroxine Sodium 100 mcg 06/05/18 07:00 06/10/18 06:35 Synthroid - PO 100 mcg DAILY@0700 AZAEL Administration Methylprednisolone Sodium Succinate 20 mg 06/05/18 18:00 06/10/18 10:04 Solu-Medrol - IVPUSH 20 mg Q8H-IV AZAEL Administration Mirtazapine 15 mg 06/04/18 22:00 06/09/18 21:09 Remeron - PO 15 mg HS AZAEL Administration Potassium Phos/Sodium Phos 1 packet 06/06/18 13:30 06/10/18 10:06 Phos-Nak Packet - PO 1 packet BID AZAEL Administration Objective: Vital Signs Period Temp Pulse Resp BP Sys/Braga Pulse Ox Last 24 Hr 97.4 F-98.3 F 57-72 16-19 137-145/52-66 90-95 Physical Exam: General: NAD Lungs: CTA b/l Heart: RRR, S1S2 Abd: Soft, non-tender, non-distended. Normoactive bowel sounds Ext: Warm, well-perfused. No edema CBCD WBC 14.6 K/mm3 (4.0-10.8) H 06/09/18 07:20 RBC 4.47 M/mm3 (3.60-5.2) 06/09/18 07:20 Hgb 13.0 GM/dl (10.7-15.3) 06/09/18 07:20 Hct 39.3 % (32.4-45.2) 06/09/18 07:20 MCV 87.9 fl (80-96) 06/09/18 07:20 MCHC 33.1 g/dl (32.0-36.0) 06/09/18 07:20 RDW 13.8 % (11.6-15.6) 06/09/18 07:20 Plt Count 374 K/MM3 (134-434) 06/09/18 07:20 MPV 7.9 fl (7.5-11.1) 06/09/18 07:20 CMP Sodium 139 mmol/L (136-145) 06/09/18 07:20 Potassium 5.2 mmol/L (3.5-5.1) H 06/09/18 07:20 Chloride 100 mmol/L (98-107) 06/09/18 07:20 Carbon Dioxide 31 mmol/L (22-28) H 06/09/18 07:20 Anion Gap 8 MMOL/L (8-16) 06/09/18 07:20 BUN 22 mg/dl (7-18) H 06/09/18 07:20 Creatinine 0.6 mg/dl (0.6-1.3) 06/09/18 07:20 Creat Clearance w eGFR > 60 (>60) 06/09/18 07:20 Random Glucose 127 mg/dl (74-106) H 06/09/18 07:20 Calcium 8.8 mg/dl (8.4-10.2) 06/09/18 07:20 Total Bilirubin 1.0 mg/dl (0.2-1.0) 06/04/18 14:24 AST 32 U/L (10-42) D 06/04/18 14:24 ALT 35 U/L (10-40) D 06/04/18 14:24 Alkaline Phosphatase 96 U/L (32-92) H 06/04/18 14:24 Total Protein 6.9 g/dl (6.4-8.3) 06/04/18 14:24 Albumin 3.2 g/dl (3.5-5.0) L 06/04/18 14:24 CARDIAC ENZYMES Creatine Kinase 345 IU/L (26-192) H 06/04/18 15:14 Troponin I 0.03 ng/ml (0.00-0.06) 06/04/18 15:14 Microbiology 06/07/18 08:45 Blood - Peripheral Venous Blood Culture - Preliminary NO GROWTH OBTAINED AFTER 72 HOURS, INCUBATION TO CONTINUE FOR 2 DAYS. 06/07/18 08:30 Blood - Peripheral Venous Blood Culture - Preliminary NO GROWTH OBTAINED AFTER 72 HOURS, INCUBATION TO CONTINUE FOR 2 DAYS. 06/04/18 14:59 Blood - Peripheral Venous Blood Culture - Final NO GROWTH AFTER 5 DAYS INCUBATION 06/04/18 14:59 Blood - Peripheral Venous Blood Culture - Preliminary Bacillus Species 06/05/18 14:42 Urine For Antigen Detection Legionella Antigen - Final 06/05/18 14:42 Urine For Antigen Detection Streptococcus pneumoniae Antigen (M - Final 06/04/18 18:14 Urine - Urine Clean Catch Urine Culture - Final NO GROWTH OBTAINED Assessment: This is an 82 year old female with PMHx of dementia, hypothyroidism , HTN, hyperlipidemia, who presented to the ED with altered mental status and fever. Plan: 1) Sepsis 2/2 community acquired pneumonia - Chest CT with acute pneumonia of the left upper lobe with small associated pleural effusion - Continue Ceftriaxone - Continue Azithromycin - Patient afebrile - WBC trending up, possible reactive 2/2 steroids, continue to trend - on 06/04 1 blood culture bottle positive for bacillus species, repeat cultures on 06/07 with NGTD. Per ID, likely contaminant 2) Acute COPD exacerbation - Improving - Continue Solu-medrol 20mg q8h - Continue Brovana - Continue Duonebs - Appreciate pulmonary consult 3) HTN - Continue Norvasc 4) Hypothyroidism - Continue Synthroid 5) Hyperlipidemia - Continue Lipitor 6) F/E/N: - Monitor electrolytes - Hypophophatemia: resolved, discontinue neutraphos 7) Prophylaxis: - PT: walked 50ft yesterday - Lovenox 40mg sq daily 8) Dispo: - Likely dispo on Tuesday to [facility] CODE STATUS: DNR/DNI Visit type - Emergency Visit Emergency Visit: Yes ED Registration Date: 06/04/18 Care time: The patient presented to the Emergency Department on the above date and was hospitalized for further evaluation of their emergent condition. - New Patient This patient is new to me today: Yes Date on this admission: 06/10/18 - Critical Care Critical Care patient: No
[2018-06-10] MEDS: ALPRAZolam 0.25 MG TABLET PO PRN ×2 (13:02→21:15)
[2018-06-10 16:48] LABS: ANION GAP 11 MMOL/L (8-16); BLOOD UREA NITROGEN 23 mg/dl (7-18); CALCIUM 8.6 mg/dl (8.4-10.2); CHLORIDE 96 mmol/L (98-107); CO2 29 mmol/L (22-28); CREATININE 0.7 mg/dl (0.6-1.3); GLUCOSE,RANDOM 220 mg/dl (74-106); POTASSIUM 4.1 mmol/L (3.5-5.1); SODIUM 136 mmol/L (136-145)
[2018-06-10] MEDS: ATORVASTATIN CA 10 MG TABLET (FP) PO SCH (21:17)
[2018-06-10] MEDS: MIRTAZAPINE 15 MG TABLET (FP) PO SCH (21:17)
[2018-06-11] MEDS: methylPREDNISolone NA SUCC 40 MG/1 ML VIAL IVPUSH SCH (01:53)
[2018-06-11] MEDS: LEVOTHYROXINE NA 100 MCG TABLET (FP) PO SCH (06:26)
[2018-06-11] MEDS: ALPRAZolam 0.25 MG TABLET PO PRN ×2 (08:18→19:00)
[2018-06-11] MEDS: ARFORMOTEROL TARTRATE 15 MCG/2 ML VIAL NEB SCH (08:19)
--- NOTE | 2018-06-11 09:20 | PN ---
Physical Exam: SUBJECTIVE: Patient seen and examined. PT denies sob, chest pain, dizziness while ambulating. Son at bedside, states mother with severe dementia, pt unable to express how she is feeling, answers yes/no questions, appears comfortable, eating breakfast. OBJECTIVE: Vital Signs Period Temp Pulse Resp BP Sys/Braga Pulse Ox Last 24 Hr 97.9 F-98.4 F 68-84 18-19 135-158/52-75 90-98 PE Neuro: alert, awak, oriented to person, son, unaware of how feeling Pulm: diminished, clear, + NC CV: S1 s2 rrr Abd: s nt nd + bs Ext: no le edema CBCD WBC 18.6 K/mm3 (4.0-10.8) H 06/11/18 06:00 RBC 5.02 M/mm3 (3.60-5.2) 06/11/18 06:00 Hgb 14.1 GM/dl (10.7-15.3) 06/11/18 06:00 Hct 44.2 % (32.4-45.2) 06/11/18 06:00 MCV 88.0 fl (80-96) 06/11/18 06:00 MCHC 32.0 g/dl (32.0-36.0) 06/11/18 06:00 RDW 13.7 % (11.6-15.6) 06/11/18 06:00 Plt Count 427 K/MM3 (134-434) 06/11/18 06:00 MPV 8.3 fl (7.5-11.1) 06/11/18 06:00 CMP Sodium 139 mmol/L (136-145) 06/11/18 06:00 Potassium 4.6 mmol/L (3.5-5.1) 06/11/18 06:00 Chloride 98 mmol/L (98-107) 06/11/18 06:00 Carbon Dioxide 27 mmol/L (22-28) 06/11/18 06:00 Anion Gap 14 MMOL/L (8-16) 06/11/18 06:00 BUN 25 mg/dl (7-18) H 06/11/18 06:00 Creatinine 0.8 mg/dl (0.6-1.3) 06/11/18 06:00 Creat Clearance w eGFR > 60 (>60) 06/11/18 06:00 Calcium 8.8 mg/dl (8.4-10.2) 06/11/18 06:00 Total Bilirubin 0.4 mg/dl (0.2-1.0) 06/11/18 06:00 AST 37 U/L (10-42) 06/11/18 06:00 ALT 88 U/L (10-40) H D 06/11/18 06:00 Alkaline Phosphatase 77 U/L (32-92) D 06/11/18 06:00 Total Protein 6.9 g/dl (6.4-8.3) 06/11/18 06:00 Albumin 3.3 g/dl (3.5-5.0) L 06/11/18 06:00 Active Medications Generic Name Dose Route Start Last Admin Trade Name Freq PRN Reason Stop Dose Admin Albuterol/Ipratropium 1 amp 06/08/18 10:02 Duoneb - NEB Q4H PRN SHORTNESS OF BREATH Alprazolam 0.5 mg 06/04/18 21:40 06/11/18 08:18 Xanax - PO 0.5 mg Q6H PRN Administration ANXIETY Amlodipine Besylate 5 mg 06/05/18 10:00 06/10/18 10:03 Norvasc - PO 5 mg DAILY AZAEL Administration Arformoterol Tartrate 1 amp 06/08/18 20:00 06/11/18 08:19 Brovana (Restricted To Pulmonology/Resp) - NEB 1 amp RBID AZAEL Administration Aspirin 81 mg 06/05/18 10:00 06/10/18 09:59 Asa - PO 81 mg DAILY AZAEL Administration Atorvastatin Calcium 10 mg 06/04/18 22:00 06/10/18 21:17 Lipitor - PO 10 mg HS AZAEL Administration Cholecalciferol 1,000 unit 06/05/18 10:00 06/10/18 10:03 Vitamin D3 - PO 1,000 unit DAILY AZAEL Administration Enoxaparin Sodium 40 mg 06/05/18 10:00 06/10/18 10:03 Lovenox - SQ 40 mg DAILY AZAEL Administration Famotidine 20 mg 06/05/18 11:00 06/10/18 21:17 Pepcid - PO 20 mg BID AZAEL Administration Ceftriaxone Sodium 1 gm in 50 mls @ 100 mls/hr 06/05/18 10:00 06/10/18 10:04 Rocephin 1gm Ivpb (Pre-Docked) IVPB 100 mls/hr DAILY AZAEL Administration Protocol Azithromycin 250 mls @ 250 mls/hr 06/05/18 10:00 06/10/18 10:50 Zithromax 500mg Ivpb (Pre-Docked) IVPB 250 mls/hr DAILY AZAEL Administration Lactobacillus Acidophilus 1 tab 06/05/18 11:00 06/10/18 10:03 Bacid - PO 1 tab DAILY AZAEL Administration Levothyroxine Sodium 100 mcg 06/05/18 07:00 06/11/18 06:26 Synthroid - PO 100 mcg DAILY@0700 AZAEL Administration Methylprednisolone Sodium Succinate 20 mg 06/05/18 18:00 06/11/18 01:53 Solu-Medrol - IVPUSH 20 mg Q8H-IV AZAEL Administration Mirtazapine 15 mg 06/04/18 22:00 06/10/18 21:17 Remeron - PO 15 mg HS AZAEL Administration Microbiology 06/07/18 08:45 Blood - Peripheral Venous Blood Culture - Preliminary NO GROWTH OBTAINED AFTER 96 HOURS, INCUBATION TO CONTINUE FOR 1 DAYS. 06/07/18 08:30 Blood - Peripheral Venous Blood Culture - Preliminary NO GROWTH OBTAINED AFTER 96 HOURS, INCUBATION TO CONTINUE FOR 1 DAYS. 06/04/18 14:59 Blood - Peripheral Venous Blood Culture - Final NO GROWTH AFTER 5 DAYS INCUBATION 06/04/18 14:59 Blood - Peripheral Venous Blood Culture - Preliminary Bacillus Species 06/05/18 14:42 Urine For Antigen Detection Legionella Antigen - Final 06/05/18 14:42 Urine For Antigen Detection Streptococcus pneumoniae Antigen (M - Final 06/04/18 18:14 Urine - Urine Clean Catch Urine Culture - Final NO GROWTH OBTAINED Imaging: - Chest CT with acute pneumonia of the left upper lobe with small associated pleural effusion Assessment: 82 year old female with PMHx of dementia, hypothyroidism, HTN, hyperlipidemia presented to the ED with altered mental status and fever. Plan 1. Sepsis 2/2 community acquired pneumonia - To complete 7 days ceftriaxone, Azithromycin today - AM CBC pending - Discussion with ID noted re: x1 positive BC on 06/04, repeat negative, no treatment 2. Acute COPD exacerbation - Will stop steroids today, pt completed 5 day course, observe, if PO needed can add for additional taper - Continue Brovana - Continue Duonebs - CXR noted 3. HTN - Continue Norvasc 4. Hypothyroidism - Continue Synthroid 5. Hyperlipidemia - Continue Lipitor 6. Hypophophatemia -Resolved 7. DVT Ppx - PT: walked 50ft yesterday - Lovenox 40mg sq daily 8. Dementia - Remeron - Xanax prn 9. Dispo - Likely dispo on Tuesday to [facility] CODE STATUS: DNR/DNI Visit type - Emergency Visit Emergency Visit: Yes ED Registration Date: 06/04/18 Care time: The patient presented to the Emergency Department on the above date and was hospitalized for further evaluation of their emergent condition. - New Patient This patient is new to me today: Yes Date on this admission: 06/11/18 - Critical Care Critical Care patient: No - Discharge Referral Referred to [facility] Med P.C.: No
[2018-06-11 09:25] LABS: EOS % 0.1 % (0-4.5); HEMOGLOBIN 14.1 GM/dl (10.7-15.3); RDW 13.7 % (11.6-15.6)
[2018-06-11 09:37] LABS: ALBUMIN 3.3 g/dl (3.5-5.0); ALK PHOS 77 U/L (32-92); ANION GAP 14 MMOL/L (8-16); BILIRUBIN,TOTAL 0.4 mg/dl (0.2-1.0); BLOOD UREA NITROGEN 25 mg/dl (7-18); CALCIUM 8.8 mg/dl (8.4-10.2); CHLORIDE 98 mmol/L (98-107); CO2 27 mmol/L (22-28); CREATININE 0.8 mg/dl (0.6-1.3); GLUCOSE,RANDOM 81 mg/dl (74-106); POTASSIUM 4.6 mmol/L (3.5-5.1); SGOT/AST 37 U/L (10-42); SGPT/ALT 88 U/L (10-40); SODIUM 139 mmol/L (136-145); TOT PROT 6.9 g/dl (6.4-8.3)
[2018-06-11 09:38] LABS: BASO % 0.5 % (0-2.0); HEMATOCRIT 44.2 % (32.4-45.2); LYMPH % 8.5 % (8-40); MCH 28.2 pg (25.7-33.7); MEAN PLT VOLUME 8.3 fl (7.5-11.1); MONO % 6.7 % (3.8-10.2); NEUT % 84.2 % (42.8-82.8); PLATELET COUNT 427 K/MM3 (134-434); RBC 5.02 M/mm3 (3.60-5.2); WHITE BLOOD COUNT 18.6 K/mm3 (4.0-10.8)
[2018-06-11] MEDS: FAMOTIDINE 20 MG TABLET PO SCH ×2 (09:40→21:23)
[2018-06-11] MEDS: ASPIRIN 81 MG CHEWABLE TABLETS PO SCH (09:41)
[2018-06-11] MEDS: ENOXAPARIN NA (PORCINE) 40 MG/0.4 ML DISP.SYRIN SQ SCH (09:41)
[2018-06-11] MEDS: LACTOBACILLUS ACIDOPHILUS 1 TABLET PO SCH (09:41)
[2018-06-11] MEDS: amLODIPine BESYLATE 5 MG TABLET (FP) PO SCH (09:41)
[2018-06-11] MEDS: CHOLECALCIFEROL (VITAMIN D3) 1,000 UNIT TABLET (FP) PO SCH (09:41)
[2018-06-11] MEDS: CEFTRIAXONE 1 GM/50 ML BAG IVPB SCH (09:42)
[2018-06-11] MEDS: AZITHROMYCIN IVPB 250 ML IVPB SCH (09:42)
[2018-06-11] MEDS: MIRTAZAPINE 15 MG TABLET (FP) PO SCH (21:23)
[2018-06-11] MEDS: ATORVASTATIN CA 10 MG TABLET (FP) PO SCH (21:23)
[2018-06-12] MEDS: LEVOTHYROXINE NA 100 MCG TABLET (FP) PO SCH (06:04)
[2018-06-12 06:56] VITALS: TEMP 98.7
[2018-06-12] MEDS: ARFORMOTEROL TARTRATE 15 MCG/2 ML VIAL NEB SCH (08:55)
--- NOTE | 2018-06-12 09:13 | DS ---
Physical Exam: SUBJECTIVE: Patient seen and examined, reoorts feeling well, less cough, tolerating diet. OBJECTIVE:This is an 82 year old female with a significant past medical history of dementia, HTN, HLD who presented to the ED with altered mental status since yesterday and fever today. Family reports pt normally performs her ADLs independently but today was unable to get up and get dressed today and was having difficulty walking yesterday. Pt was noted to be incontinent of urine today which is unusual for her. They also reports she has been showering less frequently over the past few months as well as complaining of leg pain. ER course was notable for: (1) WBC 19.2, temp 101.3 (2) CT chest with infiltrates (3) u/a with 5-10 WBC Vital Signs Period Temp Pulse Resp BP Sys/Braga Pulse Ox Last 24 Hr 97.6 F-98.7 F 63-95 18-20 141-155/63-74 93-96 PHYSICAL EXAM GENERAL: The patient is awake, alert, and oriented times person. HEAD: Normal with no signs of trauma. EYES: PERRL, extraocular movements intact, sclera anicteric, conjunctiva clear. ENT: Ears normal, nares patent, oropharynx clear without exudates, moist mucous membranes. NECK: Trachea midline, full range of motion, supple. LUNGS: Breath sounds equal, clear to auscultation bilaterally to apexes, diminished to bases, no wheezes, no crackles, no accessory muscle use. HEART: Regular rate and rhythm, S1, S2 without murmur, rub or gallop. ABDOMEN: Soft, nontender, nondistended, normoactive bowel sounds, no guarding, no rebound, no hepatosplenomegaly, no masses. EXTREMITIES: 2+ pulses, warm, well-perfused, no edema. NEUROLOGICAL: Cranial nerves II through XII grossly intact. Normal speech, gait not observed. PSYCH: Normal mood, normal affect. SKIN: Warm, dry, normal turgor, no rashes or lesions noted. LABS Laboratory Results - last 24 hr 06/11/18 06/11/18 06:00 06:00 WBC 18.6 H RBC 5.02 Hgb 14.1 Hct 44.2 MCV 88.0 MCH 28.2 MCHC 32.0 RDW 13.7 Plt Count 427 MPV 8.3 Absolute Neuts (auto) 15.7 Neutrophils % 84.2 H Lymphocytes % 8.5 Monocytes % 6.7 Eosinophils % 0.1 Basophils % 0.5 Sodium 139 Potassium 4.6 Chloride 98 Carbon Dioxide 27 Anion Gap 14 BUN 25 H Creatinine 0.8 Creat Clearance w eGFR > 60 Random Glucose 81 D Calcium 8.8 Total Bilirubin 0.4 AST 37 ALT 88 H D Alkaline Phosphatase 77 D Total Protein 6.9 Albumin 3.3 L Microbiology 06/07/18 08:45 Blood - Peripheral Venous Blood Culture - Final NO GROWTH AFTER 5 DAYS INCUBATION 06/07/18 08:30 Blood - Peripheral Venous Blood Culture - Final NO GROWTH AFTER 5 DAYS INCUBATION 06/04/18 14:59 Blood - Peripheral Venous Blood Culture - Final NO GROWTH AFTER 5 DAYS INCUBATION 06/04/18 14:59 Blood - Peripheral Venous Blood Culture - Preliminary Bacillus Species 06/05/18 14:42 Urine For Antigen Detection Legionella Antigen - Final, negative 06/05/18 14:42 Urine For Antigen Detection Streptococcus pneumoniae Antigen (M - Final, negative 06/04/18 18:14 Urine - Urine Clean Catch Urine Culture - Final NO GROWTH OBTAINED IMAGING ct of chest: Consistent with acute pneumonia of left upper lobe, small pleural effusion cxr (06/07): bibaslilar infilitrates, left upper lobe infiltrate HOSPITAL COURSE: 1. Sepsis secondary to community acquired pneumonia - patient completed 7 days of ceftriaxone and Azithromycin - leukocytosis resolved, patient is afebrile - Discussion with ID on 06/05, Dr Patel regarding x1 positive BC on 06/04, repeat negative, no treatment, positive blood culture likely a contaminate. 2. Acute COPD exacerbation - treated with 6 days of solumedrol, last dose 06/11, and observed - patient was treated with Brovana and Duonebs 3. HTN - b/p at goal continued Norvasc 4. Hypothyroidism - Continued Synthroid, tsh wnl 5. Hyperlipidemia - Continued Lipitor 6. Hypophophatemia -Resolved PLAN -discharge to SNF for short-term rehabilitation - Continue Ceftin for 5 days - Return precautions reviewed Date of Admission:06/04/18 Date of Discharge: 06/12/18 Minutes to complete discharge: 45 Discharge Summary Reason For Visit: PNEUMONIA,COPD WITH ACUTE EXACERBATION Current Active Problems Atrial fibrillation (Acute) COPD (chronic obstructive pulmonary disease) (Acute) Dementia (Acute) Pneumonia (Acute) - Instructions - Home Medications Comprehensive Discharge Medication List: Ambulatory Orders Alprazolam [Xanax] 0.5 mg PO QID 04/06/14 Amlodipine Besylate [Norvasc -] 5 mg PO DAILY 04/06/14 Levothyroxine [Synthroid -] 100 mcg PO DAILY 04/06/14 Simvastatin [Zocor -] 20 mg PO HS 04/06/14 Aspirin [ASA -] 81 mg PO DAILY 09/23/14 Mirtazapine [Remeron -] 15 mg PO DAILY 09/23/14 Cholecalciferol (Vitamin D3) [Vitamin D3] 1,000 unit PO DAILY 06/04/18 Dextrin [Easy Fiber] 2 tsp PO ASDIR PRN 06/04/18 Loperamide HCl [Imodium A-D] 2 mg PO PRN PRN 06/04/18 - Discharge Referral Referred to [facility] Med P.C.: No
[2018-06-12 10:15] VITALS: BP 145/62; PULSE 62
[2018-06-12] MEDS: ASPIRIN 81 MG CHEWABLE TABLETS PO SCH (10:17)
[2018-06-12] MEDS: FAMOTIDINE 20 MG TABLET PO SCH (10:17)
[2018-06-12] MEDS: ALPRAZolam 0.25 MG TABLET PO PRN (10:17)
[2018-06-12] MEDS: amLODIPine BESYLATE 5 MG TABLET (FP) PO SCH (10:17)
[2018-06-12] MEDS: LACTOBACILLUS ACIDOPHILUS 1 TABLET PO SCH (10:18)
[2018-06-12] MEDS: CHOLECALCIFEROL (VITAMIN D3) 1,000 UNIT TABLET (FP) PO SCH (10:18)
[2018-06-12] MEDS: ENOXAPARIN NA (PORCINE) 40 MG/0.4 ML DISP.SYRIN SQ SCH (10:18)
== END 2018-06-12 10:57 | DRG 871 ==
LOC: FER 13:52 → FM/S 18:21
PROVIDERS: ADMIT Internal Medicine; ATTEND Nurse Practitioner Family
DX: A41.9 Sepsis, unspecified organism (principal); J18.9 Pneumonia, unspecified organism; J98.11 Atelectasis; J90 Pleural effusion, not elsewhere classified; I31.3 Pericardial effusion (noninflammatory); J44.1 Chronic obstructive pulmonary disease with (acute) exacerbation; I10 Essential (primary) hypertension; E78.5 Hyperlipidemia, unspecified; I48.91 Unspecified atrial fibrillation; E03.9 Hypothyroidism, unspecified; K58.9 Irritable bowel syndrome, unspecified; F03.90 Unspecified dementia, unspecified severity, without behavioral disturbance, psychotic disturbance, mood disturbance, and anxiety; R32 Unspecified urinary incontinence; D64.9 Anemia, unspecified; M54.5 Low back pain; F41.8 Other specified anxiety disorders; M19.90 Unspecified osteoarthritis, unspecified site; E66.9 Obesity, unspecified; Z68.30 Body mass index [BMI] 30.0-30.9, adult; I25.10 Atherosclerotic heart disease of native coronary artery without angina pectoris; E83.39 Other disorders of phosphorus metabolism; K44.9 Diaphragmatic hernia without obstruction or gangrene; K76.0 Fatty (change of) liver, not elsewhere classified; N28.1 Cyst of kidney, acquired; Z66 Do not resuscitate; Z78.0 Asymptomatic menopausal state; Z87.891 Personal history of nicotine dependence
CPT/HCPCS: 36415; 71045-TC-FY; 71046-TC-FY; 71250-TC; 80048; 80053; 81003; 81015; 82550; 82553; 82803; 83605; 83735; 84100; 84443; 84484; 85025; 85610; 87040; 87086; 87899; 93005; 93306-TC; 94640; 97116-GP; 97161-GP; 99282-25; J0131; J7030; J7620

== ENCOUNTER 2021-06-17 07:54 | Day surgery (SDC) | payer OTHER ==
[2021-06-16 09:33] VITALS: BMI 35.4
[2021-06-17] MEDS: CIPROFLOXACIN 0.3% EYE DROPS 5 ML BOTTLE ONE ×3 (08:35→08:45)
[2021-06-17] MEDS: CYCLOPENTOLATE 2% OPHTH SOLN 2 ML BOTTLE ONE ×3 (08:35→08:45)
[2021-06-17] MEDS: TROPICAMIDE 1% OPHTH SOLN 15 ML BOTTLE ONE ×3 (08:35→08:45)
[2021-06-17] MEDS: PHENYLEPHRINE 2.5% OPHTH SOLN 15 ML BOTTLE ONE ×3 (08:35→08:45)
[2021-06-17 09:08] VITALS: TEMP 97.8
[2021-06-17] MEDS ORDERED: BSS (NA/CA/MG/K) BALANCED SALT SOLUTION OPHTH SOLN 15 ML BOTTLE ONE (09:49)
[2021-06-17] MEDS ORDERED: CARBACHOL 0.01% INTRA-OCULAR 1.5 ML VIAL ONE (09:49)
[2021-06-17] MEDS ORDERED: NEO/POLYMYX B SULF/DEXAMETH OPHTHALMIC 5ML BOTTLE ONE (09:49)
[2021-06-17] MEDS ORDERED: MIDAZOLAM HCL 2 MG/2 ML SINGLE DOSE VIAL ONE (09:57)
[2021-06-17 11:50] VITALS: BP 137/77; PULSE 86
== END 2021-06-17 11:15 ==
LOC: FASU 07:54
PROVIDERS: ATTEND Ophthalmology
PROC: 08ND3ZZ Release Left Iris, Percutaneous Approach (ICD-10-PCS; 2021-06-17)
PROC: 08RK3JZ Replacement of Left Lens with Synthetic Substitute, Percutaneous Approach (ICD-10-PCS; principal; 2021-06-17 10:10)
DX: H26.8 Other specified cataract (principal); H21.542 Posterior synechiae (iris), left eye

== ENCOUNTER 2022-01-11 15:06 | Inpatient (IN) | payer OTHER ==
[2022-01-11] MEDS ORDERED: ACETAMINOPHEN 1000 MG/100 ML BAG IVPB ONE (16:31)
[2022-01-11] MEDS ORDERED: methylPREDNISolone NA SUCC 125 MG/2 ML VIAL IVPUSH ONE (16:34)
[2022-01-11] MEDS ORDERED: ALBUTEROL SO4 2.5/IPRATROPIUM 0.5 INH SOL 3 ML VIAL.NEB. NEB ONE (17:40)
[2022-01-11] MEDS ORDERED: methylPREDNISolone NA SUCC 125 MG/2 ML VIAL ONE (17:41)
[2022-01-11] MEDS ORDERED: ACETAMINOPHEN INJECTION 100 ML IVPB ONE (17:41)
[2022-01-11] MEDS ORDERED: VANCOMYCIN 1 GM in D5W (PRE-DOCKED) 1,000 MG/250 ML IVPB ONE (17:58)
[2022-01-11] MEDS ORDERED: PIPERACILLIN/TAZOB 4.5 GM 4.5 GM in DEXTROSE 5%-WATER 100 ML IVPB ONE (17:58)
[2022-01-11] MEDS: ALBUTEROL SO4 2.5/IPRATROPIUM 0.5 INH SOL 3 ML VIAL.NEB. NEB SCH ×2 (18:04→18:56)
[2022-01-11 18:08] VITALS: BMI 29.5
[2022-01-11] MEDS ORDERED: PIPERACILLIN/TAZOB 4.5 GM 4.5 GM/100 ML BAG IVPB ONE (18:30)
[2022-01-11 18:41] LABS: VENOUS BASE EXCESS 5.1 mmol/L (-2-2); VENOUS O2 SATURATION 72.5 % (70-80); VENOUS PCO2 66.6 mmHg (38-52); VENOUS PH 7.318 (7.310-7.410)
[2022-01-11 18:42] LABS: BASO % 0.3 % (0-2.0); EOS % 2.1 % (0-4.5); HEMATOCRIT 39.5 % (32.4-45.2); LYMPH % 10.7 % (8-40); MCH 28.4 pg (25.7-33.7); MCHC 32.9 g/dl (32.0-36.0); MEAN CELL VOLUME 86.3 fl (80-96); MEAN PLT VOLUME 8.1 fl (7.5-11.1); MONO % 8.1 % (3.8-10.2); NEUT % 78.8 % (42.8-82.8); PLATELET COUNT 215 10^3/uL (134-434); RBC 4.58 M/mm3 (3.60-5.2); RDW 15.1 % (11.6-15.6)
[2022-01-11 18:50] LABS: INR 1.13 (0.83-1.09)
[2022-01-11 18:52] LABS: ACTIVATED PTT 28.1 SECONDS (25.2-36.5)
[2022-01-11] MEDS ORDERED: VANCOMYCIN 1 GRAM (PRE-DOCKED) 1,000 MG/250 ML BAG IVPB ONE (18:58)
[2022-01-11 19:08] LABS: CHLORIDE 101 mmol/L (98-107); SODIUM 139 mmol/L (136-145)
[2022-01-11 19:09] LABS: CALCIUM 8.4 mg/dL (8.5-10.1)
[2022-01-11 19:10] LABS: ALBUMIN 3.3 g/dl (3.4-5.0); ANION GAP 4 MMOL/L (8-16); BLOOD UREA NITROGEN 17.5 mg/dL (7-18); CO2 34 mmol/L (21-32); GLUCOSE,RANDOM 104 mg/dL (74-106)
[2022-01-11 19:12] LABS: CREATININE 0.7 mg/dL (0.55-1.3)
[2022-01-11 19:13] LABS: SGOT/AST 17 U/L (15-37); SGPT/ALT 18 U/L (13-61)
[2022-01-11 19:14] LABS: BILIRUBIN,TOTAL 0.1 mg/dL (0.2-1); TOT PROT 6.8 g/dl (6.4-8.2)
[2022-01-11 19:16] LABS: ALK PHOS 91 U/L (45-117)
[2022-01-11 19:17] LABS: N-TERMINAL BNP 642.8 pg/ml (5-450)
[2022-01-11] MEDS ORDERED: ALPRAZolam 1 MG TABLET PO PRN (19:35)
[2022-01-11] MEDS ORDERED: ASPIRIN 81 MG CHEWABLE TABLETS PO ONE (19:53)
[2022-01-11] MEDS ORDERED: ALPRAZolam 0.25 MG TABLET ONE (19:55)
[2022-01-11 20:51] LABS: EPI CELLS 4 /uL (0-25.1); HYALINE CASTS 21 /uL (0-3.1); URINE APPEARANCE CLEAR; URINE BACTERIA 8742 /uL (0-1359); URINE BILIRUBIN NEGATIVE (NEGATIVE); URINE COLOR YELLOW; URINE GLUCOSE (UA) NEGATIVE (NEGATIVE); URINE KETONE NEGATIVE (NEGATIVE); URINE LEUK ESTERASE TRACE (NEGATIVE); URINE NITRITE POSITIVE (NEGATIVE); URINE PROTEIN TRACE (NEGATIVE); URINE UROBILINOGEN 0.2 mg/dL (0.2-1.0); URINE WBC 199 /uL (0-25.8)
[2022-01-11] MEDS ORDERED: ASPIRIN 81 MG CHEWABLE TABLETS ONE (21:14)
[2022-01-11] MEDS ORDERED: SODIUM CHLORIDE 0.9% 500 ML INFUS.BAG IV ONE (21:36)
[2022-01-11] MEDS ORDERED: ACETAMINOPHEN 325 MG TABLET (FP) PO PRN (21:40)
[2022-01-12] MEDS ORDERED: LOPERAMIDE HCL 2 MG CAPSULE PO PRN (00:07)
[2022-01-12] MEDS ORDERED: guaiFENesin/D-M SUGAR-FREE/ACLHOL-FREE 118 ML BOTTLE PO PRN (00:14)
[2022-01-12] MEDS ORDERED: HYDROCORTISONE 1% TOPICAL CREAM 30 GM TUBE TP PRN (00:15)
[2022-01-12] MEDS ORDERED: DEXTROSE 5%-WATER 100 ML IVPB ONE ×4 (02:51→18:12)
[2022-01-12] MEDS ORDERED: PIPERACILLIN/TAZOBACTAM 4.5 GM VIAL IVPB ONE ×4 (02:51→18:12)
[2022-01-12] MEDS: PIPERACILLIN/TAZOB 4.5 GM 4.5 GM in DEXTROSE 5%-WATER 100 ML IVPB SCH ×3 (03:17→18:16)
[2022-01-12] MEDS: methylPREDNISolone NA SUCC 40 MG/1 ML VIAL IVPUSH SCH ×3 (03:17→18:16)
[2022-01-12 03:31] LABS: LACTIC ACID 3.1 mmol/L (0.4-2.0)
[2022-01-12] MEDS ORDERED: SODIUM CHLORIDE 1,000 ML IV STA (03:42)
[2022-01-12] MEDS ORDERED: ZINC OXIDE 20% TOPICAL OINTMENT 30 GM TUBE TP PRN (03:57)
[2022-01-12] MEDS: LEVOTHYROXINE NA 50 MCG TABLET (FP) PO SCH (07:03)
[2022-01-12 07:22] LABS: HEMATOCRIT 36.7 % (32.4-45.2); HEMOGLOBIN 12.1 GM/dL (10.7-15.3); MCH 28.9 pg (25.7-33.7); MCHC 33.1 g/dl (32.0-36.0); MEAN CELL VOLUME 87.1 fl (80-96); MEAN PLT VOLUME 7.7 fl (7.5-11.1); PLATELET COUNT 187 10^3/uL (134-434); RBC 4.21 M/mm3 (3.60-5.2); RDW 14.9 % (11.6-15.6); WHITE BLOOD COUNT 8.1 K/mm3 (4.0-10.0)
[2022-01-12 07:41] LABS: CHLORIDE 105 mmol/L (98-107); SODIUM 140 mmol/L (136-145)
[2022-01-12 07:48] LABS: CALCIUM 7.8 mg/dL (8.5-10.1)
[2022-01-12 07:49] LABS: ANION GAP 6 MMOL/L (8-16); BLOOD UREA NITROGEN 20.6 mg/dL (7-18); CO2 30 mmol/L (21-32); GLUCOSE,RANDOM 157 mg/dL (74-106)
[2022-01-12 07:52] LABS: CREATININE 0.8 mg/dL (0.55-1.3)
[2022-01-12] MEDS ORDERED: VANCOMYCIN/WATER 1,250 MG/250 ML BAG IVPB SCH (08:00)
[2022-01-12 09:56] LABS: ANISOCYTOSIS 0; HELMET CELLS 0; HOWELL-JOLLY BODIES 0; MACROCYTOSIS 0; OVALOCYTE 0; ROULEAU 0; SICKELED CELLS 0; TARGET CELLS 0; TEAR DROP CELLS 0; TOXIC GRANULATION 0
[2022-01-12] MEDS: VANCOMYCIN/WATER 1,250 MG/250 ML BAG IVPB SCH ×2 (10:19→20:18)
[2022-01-12] MEDS: LACTOBACILLUS ACIDOPHILUS 1 TABLET PO SCH (10:25)
[2022-01-12] MEDS: LIDOCAINE 5% TOPICAL PATCH TP SCH (10:25)
[2022-01-12] MEDS: amLODIPine BESYLATE 5 MG TABLET (FP) PO SCH (10:26)
[2022-01-12] MEDS: MIRTAZAPINE 15 MG TABLET (FP) PO SCH (10:26)
[2022-01-12] MEDS: PANTOPRAZOLE 20 MG TABLET PO SCH (10:26)
[2022-01-12] MEDS ORDERED: guaiFENesin 200 MG/10 ML 10 ML UNIT-DOSE CUPS PO PRN ×2 (11:07→11:19)
[2022-01-12] MEDS: ALPRAZolam 0.25 MG TABLET PO PRN ×2 (14:43→22:28)
[2022-01-12] MEDS: FUROSEMIDE 20 MG TABLET (FP) PO SCH (20:19)
[2022-01-12] MEDS: ATORVASTATIN CA 10 MG TABLET (FP) PO SCH (21:16)
[2022-01-12] MEDS: HEPARIN NA (PORCINE) 5,000 UNITS/ML 1ML VIAL SQ SCH (21:16)
[2022-01-12] MEDS: LIDOCAINE PATCH REMOVAL MC SCH (22:27)
[2022-01-12] MEDS: ALBUTEROL SO4 2.5/IPRATROPIUM 0.5 INH SOL 3 ML VIAL.NEB. NEB PRN (23:01)
[2022-01-13] MEDS ORDERED: PIPERACILLIN/TAZOBACTAM 3.375 GM VIAL IVPB ONE ×3 (02:27→16:20)
[2022-01-13] MEDS ORDERED: DEXTROSE 5%-WATER - 50 ML IVPB ONE ×3 (02:27→16:21)
[2022-01-13] MEDS: PIPERACILLIN/TAZOB 3.375 GM 3.375 GM in DEXTROSE 5%-WATER - 50 ML IVPB SCH ×3 (02:29→17:42)
[2022-01-13] MEDS: methylPREDNISolone NA SUCC 40 MG/1 ML VIAL IVPUSH SCH ×3 (02:29→17:42)
[2022-01-13] MEDS: LEVOTHYROXINE NA 50 MCG TABLET (FP) PO SCH (06:03)
[2022-01-13] MEDS: ALPRAZolam 0.25 MG TABLET PO PRN ×2 (08:06→21:00)
[2022-01-13] MEDS: PIPERACILLIN/TAZOB 4.5 GM 4.5 GM in DEXTROSE 5%-WATER 100 ML IVPB SCH (10:19)
[2022-01-13] MEDS: HEPARIN NA (PORCINE) 5,000 UNITS/ML 1ML VIAL SQ SCH ×2 (10:21→21:52)
[2022-01-13] MEDS: amLODIPine BESYLATE 5 MG TABLET (FP) PO SCH (10:21)
[2022-01-13] MEDS: PANTOPRAZOLE 20 MG TABLET PO SCH (10:22)
[2022-01-13] MEDS: MIRTAZAPINE 15 MG TABLET (FP) PO SCH (10:22)
[2022-01-13] MEDS: FUROSEMIDE 20 MG TABLET (FP) PO SCH ×2 (10:22→10:32)
[2022-01-13] MEDS: LACTOBACILLUS ACIDOPHILUS 1 TABLET PO SCH (10:22)
[2022-01-13] MEDS: LIDOCAINE 5% TOPICAL PATCH TP SCH (10:22)
[2022-01-13] MEDS: FUROSEMIDE 40 MG/4 ML INJECTABLE VIAL IVPUSH SCH (11:26)
[2022-01-13 13:08] LABS: SARS-CoV-2 NAA Not Detected (Not Detected)
[2022-01-13] MEDS ORDERED: ALPRAZolam 0.25 MG TABLET PO ONE (15:39)
[2022-01-13] MEDS: LIDOCAINE PATCH REMOVAL MC SCH (21:47)
[2022-01-13] MEDS: ALBUTEROL SO4 2.5/IPRATROPIUM 0.5 INH SOL 3 ML VIAL.NEB. NEB PRN (21:50)
[2022-01-13] MEDS: ATORVASTATIN CA 10 MG TABLET (FP) PO SCH (21:52)
[2022-01-13] MEDS: guaiFENesin/D-M SUGAR-FREE/ACLHOL-FREE 5 ML UNIT DOSE PO PRN (21:53)
[2022-01-13] MEDS: MELATONIN 5 MG TABLETS PO SCH (21:53)
[2022-01-14] MEDS ORDERED: PIPERACILLIN/TAZOBACTAM 3.375 GM VIAL IVPB ONE ×4 (00:32→20:59)
[2022-01-14] MEDS ORDERED: DEXTROSE 5%-WATER - 50 ML IVPB ONE ×4 (00:32→21:00)
[2022-01-14] MEDS: methylPREDNISolone NA SUCC 40 MG/1 ML VIAL IVPUSH SCH ×3 (01:00→22:07)
[2022-01-14] MEDS: PIPERACILLIN/TAZOB 3.375 GM 3.375 GM in DEXTROSE 5%-WATER - 50 ML IVPB SCH ×3 (01:00→17:50)
[2022-01-14] MEDS: ALPRAZolam 0.25 MG TABLET PO PRN ×2 (05:56→12:38)
[2022-01-14] MEDS: guaiFENesin/D-M SUGAR-FREE/ACLHOL-FREE 5 ML UNIT DOSE PO PRN (05:56)
[2022-01-14] MEDS: LEVOTHYROXINE NA 50 MCG TABLET (FP) PO SCH (06:04)
[2022-01-14 07:36] LABS: BLOOD UREA NITROGEN 31.7 mg/dL (7-18)
[2022-01-14 07:39] LABS: CREATININE 0.9 mg/dL (0.55-1.3)
[2022-01-14] MEDS: HEPARIN NA (PORCINE) 5,000 UNITS/ML 1ML VIAL SQ SCH ×2 (10:01→22:07)
[2022-01-14] MEDS: amLODIPine BESYLATE 5 MG TABLET (FP) PO SCH (10:01)
[2022-01-14] MEDS: PANTOPRAZOLE 20 MG TABLET PO SCH (10:01)
[2022-01-14] MEDS: MIRTAZAPINE 15 MG TABLET (FP) PO SCH (10:01)
[2022-01-14] MEDS: LACTOBACILLUS ACIDOPHILUS 1 TABLET PO SCH (10:01)
[2022-01-14 10:20] LABS: HEMATOCRIT 37.8 % (32.4-45.2); MCH 27.4 pg (25.7-33.7); MCHC 31.6 g/dl (32.0-36.0); MEAN CELL VOLUME 86.7 fl (80-96); MEAN PLT VOLUME 8.5 fl (7.5-11.1); PLATELET COUNT 232 10^3/uL (134-434); RBC 4.36 M/mm3 (3.60-5.2); RDW 14.9 % (11.6-15.6); WHITE BLOOD COUNT 10.1 K/mm3 (4.0-10.0)
[2022-01-14] MEDS: LIDOCAINE 5% TOPICAL PATCH TP SCH (10:25)
[2022-01-14 10:41] LABS: ANISOCYTOSIS 1+; MACROCYTOSIS 0
[2022-01-14] MEDS: FUROSEMIDE 40 MG/4 ML INJECTABLE VIAL IVPUSH SCH (11:32)
[2022-01-14] MEDS: LIDOCAINE PATCH REMOVAL MC SCH (22:00)
[2022-01-14] MEDS: ATORVASTATIN CA 10 MG TABLET (FP) PO SCH (22:07)
[2022-01-14] MEDS: MELATONIN 5 MG TABLETS PO SCH (22:07)
[2022-01-15] MEDS: PIPERACILLIN/TAZOB 3.375 GM 3.375 GM in DEXTROSE 5%-WATER - 50 ML IVPB SCH ×3 (02:00→17:26)
[2022-01-15] MEDS: LEVOTHYROXINE NA 50 MCG TABLET (FP) PO SCH (06:03)
[2022-01-15] MEDS ORDERED: PIPERACILLIN/TAZOBACTAM 3.375 GM VIAL IVPB ONE ×3 (08:54→21:11)
[2022-01-15] MEDS ORDERED: DEXTROSE 5%-WATER - 50 ML IVPB ONE ×3 (08:55→21:11)
[2022-01-15] MEDS: FUROSEMIDE 40 MG/4 ML INJECTABLE VIAL IVPUSH SCH (09:16)
[2022-01-15] MEDS: MIRTAZAPINE 15 MG TABLET (FP) PO SCH (09:17)
[2022-01-15] MEDS: methylPREDNISolone NA SUCC 40 MG/1 ML VIAL IVPUSH SCH ×2 (09:17→21:30)
[2022-01-15] MEDS: HEPARIN NA (PORCINE) 5,000 UNITS/ML 1ML VIAL SQ SCH ×2 (09:17→21:30)
[2022-01-15] MEDS: LACTOBACILLUS ACIDOPHILUS 1 TABLET PO SCH (09:17)
[2022-01-15] MEDS: amLODIPine BESYLATE 5 MG TABLET (FP) PO SCH (09:17)
[2022-01-15] MEDS: PANTOPRAZOLE 20 MG TABLET PO SCH (09:17)
[2022-01-15] MEDS: LIDOCAINE 5% TOPICAL PATCH TP SCH (09:18)
[2022-01-15] MEDS: ALPRAZolam 0.25 MG TABLET PO PRN (16:41)
[2022-01-15] MEDS: MELATONIN 5 MG TABLETS PO SCH (21:30)
[2022-01-15] MEDS: ATORVASTATIN CA 10 MG TABLET (FP) PO SCH (21:30)
[2022-01-15] MEDS: LIDOCAINE PATCH REMOVAL MC SCH (21:32)
[2022-01-16] MEDS: ALPRAZolam 0.25 MG TABLET PO PRN ×3 (02:04→20:10)
[2022-01-16] MEDS: PIPERACILLIN/TAZOB 3.375 GM 3.375 GM in DEXTROSE 5%-WATER - 50 ML IVPB SCH ×3 (02:05→17:17)
[2022-01-16] MEDS: LEVOTHYROXINE NA 50 MCG TABLET (FP) PO SCH (07:23)
[2022-01-16 07:49] LABS: BASO % 0.1 % (0-2.0); HEMATOCRIT 40.7 % (32.4-45.2); HEMOGLOBIN 13.1 GM/dL (10.7-15.3); LYMPH % 7.3 % (8-40); MCH 27.8 pg (25.7-33.7); MCHC 32.2 g/dl (32.0-36.0); MEAN CELL VOLUME 86.3 fl (80-96); MEAN PLT VOLUME 8.2 fl (7.5-11.1); MONO % 6.2 % (3.8-10.2); NEUT % 86.4 % (42.8-82.8); PLATELET COUNT 218 10^3/uL (134-434); RBC 4.72 M/mm3 (3.60-5.2); RDW 14.5 % (11.6-15.6); WHITE BLOOD COUNT 8.5 K/mm3 (4.0-10.0)
[2022-01-16 07:58] LABS: CALCIUM 8.8 mg/dL (8.5-10.1)
[2022-01-16 07:59] LABS: ALBUMIN 3.1 g/dl (3.4-5.0); BLOOD UREA NITROGEN 30.3 mg/dL (7-18)
[2022-01-16 08:02] LABS: CREATININE 0.8 mg/dL (0.55-1.3)
[2022-01-16 08:03] LABS: BILIRUBIN,TOTAL 0.4 mg/dL (0.2-1)
[2022-01-16 08:05] LABS: TOT PROT 6.7 g/dl (6.4-8.2)
[2022-01-16] MEDS ORDERED: DEXTROSE 5%-WATER - 50 ML IVPB ONE ×2 (09:45→16:04)
[2022-01-16] MEDS ORDERED: PIPERACILLIN/TAZOBACTAM 3.375 GM VIAL IVPB ONE ×2 (09:45→16:04)
[2022-01-16] MEDS: FUROSEMIDE 40 MG/4 ML INJECTABLE VIAL IVPUSH SCH (10:16)
[2022-01-16] MEDS: LIDOCAINE 5% TOPICAL PATCH TP SCH (10:16)
[2022-01-16] MEDS: methylPREDNISolone NA SUCC 40 MG/1 ML VIAL IVPUSH SCH ×2 (10:16→23:14)
[2022-01-16] MEDS: HEPARIN NA (PORCINE) 5,000 UNITS/ML 1ML VIAL SQ SCH ×2 (10:17→20:59)
[2022-01-16] MEDS: guaiFENesin/D-M SUGAR-FREE/ACLHOL-FREE 5 ML UNIT DOSE PO PRN ×2 (10:19→21:01)
[2022-01-16] MEDS: amLODIPine BESYLATE 5 MG TABLET (FP) PO SCH (10:19)
[2022-01-16] MEDS: PANTOPRAZOLE 20 MG TABLET PO SCH (10:19)
[2022-01-16] MEDS: MIRTAZAPINE 15 MG TABLET (FP) PO SCH (10:19)
[2022-01-16] MEDS: LACTOBACILLUS ACIDOPHILUS 1 TABLET PO SCH (10:19)
[2022-01-16] MEDS: ALBUTEROL SO4 2.5/IPRATROPIUM 0.5 INH SOL 3 ML VIAL.NEB. NEB SCH ×3 (13:25→20:40)
[2022-01-16] MEDS: MELATONIN 5 MG TABLETS PO SCH (21:00)
[2022-01-16] MEDS: ATORVASTATIN CA 10 MG TABLET (FP) PO SCH (21:00)
[2022-01-16] MEDS: LIDOCAINE PATCH REMOVAL MC SCH (21:00)
[2022-01-17] MEDS ORDERED: DEXTROSE 5%-WATER - 50 ML IVPB ONE ×3 (01:09→15:53)
[2022-01-17] MEDS ORDERED: PIPERACILLIN/TAZOBACTAM 3.375 GM VIAL IVPB ONE ×3 (01:09→15:53)
[2022-01-17] MEDS: PIPERACILLIN/TAZOB 3.375 GM 3.375 GM in DEXTROSE 5%-WATER - 50 ML IVPB SCH ×3 (01:11→17:00)
[2022-01-17] MEDS: ZOLPIDEM TARTRATE 5 MG TABLET PO PRN ×2 (01:51→22:02)
[2022-01-17] MEDS: guaiFENesin/D-M SUGAR-FREE/ACLHOL-FREE 5 ML UNIT DOSE PO PRN ×2 (05:18→19:57)
[2022-01-17] MEDS: ALPRAZolam 0.25 MG TABLET PO PRN ×3 (05:18→19:55)
[2022-01-17] MEDS: LEVOTHYROXINE NA 50 MCG TABLET (FP) PO SCH (06:09)
[2022-01-17 07:51] LABS: BASO % 0.1 % (0-2.0); HEMATOCRIT 41.8 % (32.4-45.2); HEMOGLOBIN 13.4 GM/dL (10.7-15.3); LYMPH % 6.4 % (8-40); MCH 27.6 pg (25.7-33.7); MEAN CELL VOLUME 86.2 fl (80-96); MEAN PLT VOLUME 8.3 fl (7.5-11.1); MONO % 5.9 % (3.8-10.2); NEUT % 87.6 % (42.8-82.8); PLATELET COUNT 245 10^3/uL (134-434); RBC 4.85 M/mm3 (3.60-5.2); RDW 14.3 % (11.6-15.6); WHITE BLOOD COUNT 13.1 K/mm3 (4.0-10.0)
[2022-01-17] MEDS: ALBUTEROL SO4 2.5/IPRATROPIUM 0.5 INH SOL 3 ML VIAL.NEB. NEB SCH ×4 (08:10→20:32)
[2022-01-17 08:13] LABS: CALCIUM 9.2 mg/dL (8.5-10.1)
[2022-01-17 08:14] LABS: ALBUMIN 3.2 g/dl (3.4-5.0); BLOOD UREA NITROGEN 27.6 mg/dL (7-18)
[2022-01-17 08:17] LABS: CREATININE 0.9 mg/dL (0.55-1.3)
[2022-01-17 08:19] LABS: BILIRUBIN,TOTAL 0.4 mg/dL (0.2-1); TOT PROT 7.1 g/dl (6.4-8.2)
[2022-01-17] MEDS: FUROSEMIDE 40 MG/4 ML INJECTABLE VIAL IVPUSH SCH (10:18)
[2022-01-17] MEDS: HEPARIN NA (PORCINE) 5,000 UNITS/ML 1ML VIAL SQ SCH ×3 (10:18→21:53)
[2022-01-17] MEDS: LACTOBACILLUS ACIDOPHILUS 1 TABLET PO SCH (10:18)
[2022-01-17] MEDS: PANTOPRAZOLE 20 MG TABLET PO SCH (10:18)
[2022-01-17] MEDS: methylPREDNISolone NA SUCC 40 MG/1 ML VIAL IVPUSH SCH ×3 (10:18→21:53)
[2022-01-17] MEDS: amLODIPine BESYLATE 5 MG TABLET (FP) PO SCH (10:18)
[2022-01-17] MEDS: LIDOCAINE 5% TOPICAL PATCH TP SCH (10:19)
[2022-01-17] MEDS: MIRTAZAPINE 15 MG TABLET (FP) PO SCH (10:19)
[2022-01-17] MEDS: ATORVASTATIN CA 10 MG TABLET (FP) PO SCH ×2 (19:56→21:53)
[2022-01-17] MEDS: MELATONIN 5 MG TABLETS PO SCH ×2 (19:56→21:53)
[2022-01-17] MEDS: LIDOCAINE PATCH REMOVAL MC SCH (21:53)
[2022-01-18] MEDS ORDERED: DEXTROSE 5%-WATER - 50 ML IVPB ONE ×2 (00:58→09:43)
[2022-01-18] MEDS ORDERED: PIPERACILLIN/TAZOBACTAM 3.375 GM VIAL IVPB ONE ×2 (00:58→09:42)
[2022-01-18] MEDS: PIPERACILLIN/TAZOB 3.375 GM 3.375 GM in DEXTROSE 5%-WATER - 50 ML IVPB SCH ×2 (03:27→10:25)
[2022-01-18] MEDS: LEVOTHYROXINE NA 50 MCG TABLET (FP) PO SCH (06:18)
[2022-01-18 07:13] LABS: HEMATOCRIT 43.2 % (32.4-45.2); HEMOGLOBIN 13.9 GM/dL (10.7-15.3); LYMPH % 6.6 % (8-40); MCH 27.4 pg (25.7-33.7); MCHC 32.1 g/dl (32.0-36.0); MEAN CELL VOLUME 85.4 fl (80-96); MEAN PLT VOLUME 8.2 fl (7.5-11.1); MONO % 6.9 % (3.8-10.2); NEUT % 86.5 % (42.8-82.8); PLATELET COUNT 264 10^3/uL (134-434); RBC 5.06 M/mm3 (3.60-5.2); RDW 14.7 % (11.6-15.6); WHITE BLOOD COUNT 15.6 K/mm3 (4.0-10.0)
[2022-01-18] MEDS: ALBUTEROL SO4 2.5/IPRATROPIUM 0.5 INH SOL 3 ML VIAL.NEB. NEB SCH ×4 (08:05→20:02)
[2022-01-18] MEDS: FUROSEMIDE 40 MG/4 ML INJECTABLE VIAL IVPUSH SCH (10:24)
[2022-01-18] MEDS: MIRTAZAPINE 15 MG TABLET (FP) PO SCH (10:25)
[2022-01-18] MEDS: HEPARIN NA (PORCINE) 5,000 UNITS/ML 1ML VIAL SQ SCH ×2 (10:25→22:53)
[2022-01-18] MEDS: amLODIPine BESYLATE 5 MG TABLET (FP) PO SCH (10:25)
[2022-01-18] MEDS: PANTOPRAZOLE 20 MG TABLET PO SCH (10:25)
[2022-01-18] MEDS: LACTOBACILLUS ACIDOPHILUS 1 TABLET PO SCH (10:25)
[2022-01-18] MEDS: LIDOCAINE 5% TOPICAL PATCH TP SCH (10:25)
[2022-01-18] MEDS: methylPREDNISolone NA SUCC 40 MG/1 ML VIAL IVPUSH SCH (10:26)
[2022-01-18] MEDS ORDERED: ACETAMINOPHEN 325 MG TABLET (FP) PO PRN (19:01)
[2022-01-18] MEDS ORDERED: guaiFENesin/D-M SUGAR-FREE/ACLHOL-FREE 5 ML UNIT DOSE PO PRN (19:01)
[2022-01-18] MEDS ORDERED: LOPERAMIDE HCL 2 MG CAPSULE PO PRN (19:01)
[2022-01-18] MEDS ORDERED: ZINC OXIDE 20% TOPICAL OINTMENT 30 GM TUBE TP PRN (19:01)
[2022-01-18] MEDS ORDERED: HYDROCORTISONE 1% TOPICAL CREAM 30 GM TUBE TP PRN (19:01)
[2022-01-18] MEDS ORDERED: LIDOCAINE PATCH REMOVAL MC SCH (22:00)
[2022-01-18] MEDS: LIDOCAINE PATCH REMOVAL MC SCH (22:54)
[2022-01-18] MEDS: MELATONIN 5 MG TABLETS PO SCH (22:54)
[2022-01-18] MEDS: ATORVASTATIN CA 10 MG TABLET (FP) PO SCH (22:54)
[2022-01-18] MEDS: CEFUROXIME AXETIL 500 MG TABLET PO SCH (22:54)
[2022-01-19] MEDS: LEVOTHYROXINE NA 100 MCG TABLET (FP) PO SCH (06:17)
[2022-01-19] MEDS: ALBUTEROL SO4 2.5/IPRATROPIUM 0.5 INH SOL 3 ML VIAL.NEB. NEB SCH ×4 (07:31→19:44)
[2022-01-19] MEDS ORDERED: methylPREDNISolone NA SUCC 40 MG/1 ML VIAL IVPUSH SCH ×2 (10:00)
[2022-01-19] MEDS ORDERED: FUROSEMIDE 40 MG/4 ML INJECTABLE VIAL IVPUSH SCH (10:00)
[2022-01-19] MEDS: HEPARIN NA (PORCINE) 5,000 UNITS/ML 1ML VIAL SQ SCH ×2 (11:16→21:49)
[2022-01-19] MEDS: LACTOBACILLUS ACIDOPHILUS 1 TABLET PO SCH (11:16)
[2022-01-19] MEDS: amLODIPine BESYLATE 5 MG TABLET (FP) PO SCH (11:17)
[2022-01-19] MEDS: LIDOCAINE 5% TOPICAL PATCH TP SCH (11:17)
[2022-01-19] MEDS: MIRTAZAPINE 15 MG TABLET (FP) PO SCH (11:17)
[2022-01-19] MEDS: PANTOPRAZOLE 20 MG TABLET PO SCH (11:17)
[2022-01-19] MEDS: CEFUROXIME AXETIL 500 MG TABLET PO SCH ×2 (11:17→21:49)
[2022-01-19] MEDS: ALPRAZolam 1 MG TABLET PO PRN ×2 (12:12→20:30)
[2022-01-19] MEDS: ZOLPIDEM TARTRATE 5 MG TABLET PO PRN (20:27)
[2022-01-19] MEDS: MELATONIN 5 MG TABLETS PO SCH (21:49)
[2022-01-19] MEDS: ATORVASTATIN CA 10 MG TABLET (FP) PO SCH (21:49)
[2022-01-19] MEDS: LIDOCAINE PATCH REMOVAL MC SCH (21:49)
[2022-01-20] MEDS: LEVOTHYROXINE NA 100 MCG TABLET (FP) PO SCH (06:25)
[2022-01-20] MEDS: ALBUTEROL SO4 2.5/IPRATROPIUM 0.5 INH SOL 3 ML VIAL.NEB. NEB SCH ×4 (07:50→20:30)
[2022-01-20] MEDS: MIRTAZAPINE 15 MG TABLET (FP) PO SCH (10:52)
[2022-01-20] MEDS: FUROSEMIDE 40 MG TABLET (FP) PO SCH (10:52)
[2022-01-20] MEDS: amLODIPine BESYLATE 5 MG TABLET (FP) PO SCH (10:52)
[2022-01-20] MEDS: LACTOBACILLUS ACIDOPHILUS 1 TABLET PO SCH (10:52)
[2022-01-20] MEDS: PANTOPRAZOLE 20 MG TABLET PO SCH (10:52)
[2022-01-20] MEDS: HEPARIN NA (PORCINE) 5,000 UNITS/ML 1ML VIAL SQ SCH ×2 (10:53→21:41)
[2022-01-20] MEDS: LIDOCAINE 5% TOPICAL PATCH TP SCH (10:53)
[2022-01-20] MEDS: CEFUROXIME AXETIL 500 MG TABLET PO SCH ×2 (10:53→21:40)
[2022-01-20 12:08] LABS: SARS-CoV-2 NAA Not Detected (Not Detected)
[2022-01-20] MEDS: ALPRAZolam 1 MG TABLET PO PRN ×2 (15:30→21:40)
[2022-01-20] MEDS: MELATONIN 5 MG TABLETS PO SCH (21:40)
[2022-01-20] MEDS: ZOLPIDEM TARTRATE 5 MG TABLET PO PRN (21:41)
[2022-01-20] MEDS: ATORVASTATIN CA 10 MG TABLET (FP) PO SCH (21:41)
[2022-01-20] MEDS: LIDOCAINE PATCH REMOVAL MC SCH (21:41)
[2022-01-21] MEDS: LEVOTHYROXINE NA 100 MCG TABLET (FP) PO SCH (06:08)
[2022-01-21] MEDS: ALBUTEROL SO4 2.5/IPRATROPIUM 0.5 INH SOL 3 ML VIAL.NEB. NEB SCH ×3 (07:55→15:46)
[2022-01-21] MEDS: LIDOCAINE 5% TOPICAL PATCH TP SCH (09:52)
[2022-01-21] MEDS: CEFUROXIME AXETIL 500 MG TABLET PO SCH (09:53)
[2022-01-21] MEDS: amLODIPine BESYLATE 5 MG TABLET (FP) PO SCH (09:53)
[2022-01-21] MEDS: FUROSEMIDE 40 MG TABLET (FP) PO SCH (09:53)
[2022-01-21] MEDS: MIRTAZAPINE 15 MG TABLET (FP) PO SCH (09:53)
[2022-01-21] MEDS: LACTOBACILLUS ACIDOPHILUS 1 TABLET PO SCH (09:53)
[2022-01-21] MEDS: PANTOPRAZOLE 20 MG TABLET PO SCH (09:53)
[2022-01-21] MEDS: HEPARIN NA (PORCINE) 5,000 UNITS/ML 1ML VIAL SQ SCH (09:53)
[2022-01-21 14:17] VITALS: BP 113/68; PULSE 77; TEMP 98.7
== END 2022-01-21 18:40 | DRG 871 ==
LOC: JER 15:06 → JERBED 19:03 → J4W 01-12 01:41 → J6S 01-18 18:56
PROVIDERS: ADMIT Hospitalist; ATTEND Internal Medicine
DX: A41.9 Sepsis, unspecified organism (principal); J18.9 Pneumonia, unspecified organism; J96.01 Acute respiratory failure with hypoxia; J44.1 Chronic obstructive pulmonary disease with (acute) exacerbation; N39.0 Urinary tract infection, site not specified; E87.2 Acidosis; J44.0 Chronic obstructive pulmonary disease with (acute) lower respiratory infection; F02.81 Dementia in other diseases classified elsewhere, unspecified severity, with behavioral disturbance; E03.9 Hypothyroidism, unspecified; I10 Essential (primary) hypertension; G30.9 Alzheimer's disease, unspecified; I48.91 Unspecified atrial fibrillation; K21.9 Gastro-esophageal reflux disease without esophagitis; E78.5 Hyperlipidemia, unspecified; Z68.29 Body mass index [BMI] 29.0-29.9, adult; E66.9 Obesity, unspecified; F41.8 Other specified anxiety disorders
CPT/HCPCS: 36415; 71045-TC-FY; 71250-TC; 80048; 80053; 81003; 82550; 82803; 82962; 83605; 83735; 83880; 84484; 85025; 85610; 85730; 87040; 87086; 87186; 87899; 93005; 93010; 93306-TC; 94010; 94640; 99285-25; C9803-CS; J1644; U0003; U0005